=== PATIENT | male | born 1940 | race Caucasian/White ===

== ENCOUNTER 2020-09-17 10:46 | Inpatient (IN) ==
[2020-09-17] MEDS ORDERED: HYDROmorphone 0.5 MG/0.5 ML SYRINGE IV PRN (14:49)
[2020-09-17] MEDS ORDERED: cefTRIAXone 1 GM in DEXTROSE 5% IN WATER 50 ML IV SCH (15:00)
[2020-09-17 15:51] LABS: Basophils # (Auto) 0.03 K/mcL (0.00-0.20); Basophils % (Auto) 0.6 % (0.0-2.0); Eosinophils # (Auto) 0.01 K/mcL (0.00-0.70); Eosinophils % (Auto) 0.2 % (0.0-7.0); Hematocrit 47.9 % (41.0-55.0); Hemoglobin 15.8 g/dL (13.5-16.5); Lymphocytes # (Auto) 0.73 K/mcL (1.50-4.80); Lymphocytes % (Auto) 13.4 % (15.0-49.0); Mean Cell Volume 85.8 fL (80.0-100.0); Mean Platelet Volume 11.8 fL (7.4-10.4); Monocytes # (Auto) 0.49 K/mcL (0.10-0.90); Neutrophils % (Auto) 76.8 % (38.0-78.0); Platelet Count 162 K/mcL (140-440); RBC 5.58 M/mcL (4.50-5.90); Red Cell Distribution Width 13.3 % (11.5-14.5); WBC 5.5 K/mcL (4.5-11.0)
[2020-09-17 15:57] LABS: INR 1.1 (0.9-1.1); Prothrombin Time 14.6 sec (11.9-14.5)
[2020-09-17 16:16] LABS: ALT/SGPT 17 U/L (<40); AST/SGOT 38 U/L (<40); Albumin 3.5 gm/dL (3.2-5.2); Albumin/Globulin Ratio 1.5 (1.0-2.3); Alkaline Phosphatase 73 U/L (39-117); Bilirubin,Direct 0.3 mg/dL (<0.3); Bilirubin,Total 0.9 mg/dL (0.1-1.0); Blood Urea Nitrogen 26 mg/dL (8-23); Calcium 8.7 mg/dL (8.6-10.4); Carbon Dioxide 21 mmol/L (22-30); Chloride 106 mmol/L (96-108); Globulin 2.4 gm/dL (2.2-3.7); Glomerular Filtration Rate 69; Glucose 65 mg/dL (70-105); Lactate Dehydrogenase 167 U/L (135-225); Phosphorous 2.7 mg/dL (2.5-4.5); Triglycerides 49 mg/dL (<150); Uric Acid 7.6 mg/dL (2.5-8.0)
--- NOTE | 2020-09-17 16:16 | XRay Report ---
INDICATION: Preop evaluation TECHNIQUE: AP portable upright chest x-ray COMPARISON: Previous chest x-rays dated 01/27/2019, 01/06/2019, 07/02/2017 FINDINGS:Previous median sternotomy. 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 No focal pulmonary parenchymal infiltrate or mass Heart, vascular:No significant cardiomegaly. Pulmonary vascularity is normal. No pulmonary edema or pulmonary congestion Mediastinum, tanya:No mediastinal widening. No hilar mass Pleura:No pleural fluid. No pleural-based mass or calcification Skeletal:Nonacute healed left 7th and 8th rib fractures. No acute abnormality IMPRESSION: 1. No acute or focal abnormality 2. No interval change since 01/27/2019 Interpreted and Authenticated by: Tuan Amin 09/17/20
[2020-09-17] MEDS: cefTRIAXone 1 GM VIAL IV SCH (16:34)
[2020-09-17] MEDS: 0.9 % SODIUM CHLORIDE 1,000 ML IV SCH (16:35)
--- NOTE | 2020-09-17 17:20 | EKG ---
[facility] Test Date: 2020-09-17 Pat Name: Alessandro Watters Department: [facility] Room: 111 Gender: Male Nursing Assoc: : 1940 Requested By: Ioana Gudino Order Number: [id number] Reading MD: Wilson Jaimes M.D. Measurements Intervals Angela Rate: 93 P: 49 TX: 216 QRS: -4 QRSD: 134 T: 252 QT: 360 QTc: 448 Interpretive Statements SINUS RHYTHM VENTRICULAR PREMATURE COMPLEX FIRST DEGREE AV BLOCK RIGHT BUNDLE BRANCH BLOCK Since previous ECG of 01-27-2019, PVC, ABNORMAL ECG Electronically Signed On 09-17-2020 17:20:34 PDT by Wilson Jaimes M.D. /[email or web address]/[id number]
[2020-09-17] MEDS: METOCLOPRAMIDE 10 MG/2 ML VIAL IV SCH (18:11)
[2020-09-17] MEDS: ONDANSETRON 4 MG/2 ML VIAL IV PRN (20:25)
[2020-09-17] MEDS: TAMSULOSIN 0.4 MG CAPSULE PO SCH (20:25)
[2020-09-17] MEDS: 0.9 % SODIUM CHLORIDE 10 ML SYRINGE IV SCH (20:25)
[2020-09-18] MEDS: 0.9 % SODIUM CHLORIDE 1,000 ML IV SCH ×3 (00:44→17:18)
[2020-09-18] MEDS: METOCLOPRAMIDE 10 MG/2 ML VIAL IV SCH ×5 (00:50→23:53)
[2020-09-18] MEDS: 0.9 % SODIUM CHLORIDE 10 ML SYRINGE IV SCH ×3 (05:36→20:00)
[2020-09-18] MEDS: cefTRIAXone 1 GM VIAL IV SCH (09:07)
--- NOTE | 2020-09-18 14:39 | General Surgery Progress Note ---
SUBJECTIVE Subjective Patient information: Note initiated : 09/18/20 at 2:34 pm Service Date, if different from initiated Date: [] Patient: Alessandro Watters 80 y/o M admitted on 09/17/20 for G-Tube and J-Tube Placement. Chief Complaint: [] Principal diagnosis: Gastroparesis; recurrent nausea vomiting Interval history: Patient is clinically stable. He does complain of hunger. His surgery could not be done today because of equipment problems. It is scheduled for first case tomorrow. Is very cold Constitutional Vitals: Vital Signs Temp Pulse Resp BP Pulse Ox 98.1 F 57 L 20 113/58 92 09/18/20 12:00 09/18/20 12:00 09/18/20 12:00 09/18/20 12:00 09/18/20 12:00 Period Temp Pulse Resp BP Sys/Serra Pulse Ox Last 24 Hr 97.6 F-98.8 F 57-86 16-20 104-135/56-79 92-96 Intake and Output 09/18/20 09/18/20 09/18/20 05:59 13:59 21:59 Intake Total 1000 1400 Output Total 200 100 Balance 800 1300 Intake & Output: Intake & Output 09/18/20 09/18/20 09/18/20 05:59 13:59 21:59 Intake Total 1000 1400 Output Total 200 100 Balance 800 1300 Intake: IV 1000 1000 Sodium Chloride 0.9% 1,000 ml @ 1000 1000 125 mls/hr IV .Q8H [facility] Rx#: [id number] Oral 400 Output: Void Amount 200 100 Other: Urine Appearance Clear Urine Color Dark Yellow Light Allie Urine Odor Strong Head Head exam: Present atraumatic and normal inspection Eye Eye exam: Present EOMI Pupils: Present normal accommodation and PERRL ENT ENT exam: Present mucous membranes moist, normal exam and normal oropharynx Neck Neck exam: Present full ROM; Absent lymphadenopathy and thyromegaly Respiratory Respiratory exam: Present normal respiratory exam and CTAB; Absent rales, rhonchi and wheezes Cardiovascular Cardiovascular exam: Present normal rate and rhythm, RRR, +S1 and +S2; Absent JVD GI/Abdominal GI/Abdominal exam: Present soft Additional comments: Tenderness of the upper epigastric region with drainage from old PEG tube site Extremities Exam Extremities exam: Present full ROM and normal inspection; Absent pedal edema and tenderness Neurological Exam Neurological exam: Present alert, normal gait, oriented X3 and reflexes normal Psychiatric Psychiatric exam: Present normal affect and normal mood Skin Skin exam: Present erythema Additional comments: Cellulitis of epigastric region A/P Assessment and plan (1) Complication of feeding tube: Status: Acute (2) 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 He is scheduled for open jejunostomy and percutaneous gastrostomy placement in the a.m. Time Spent With Patient Time: Total time spent is greater than 50% in coordination of care (as documented) at patient's floor/unit and/or counseling patient:
[2020-09-18] MEDS: ONDANSETRON 4 MG/2 ML VIAL IV PRN (19:59)
[2020-09-18] MEDS: TAMSULOSIN 0.4 MG CAPSULE PO SCH (19:59)
[2020-09-19] MEDS: 0.9 % SODIUM CHLORIDE 1,000 ML IV SCH ×4 (02:13→18:37)
[2020-09-19] MEDS: 0.9 % SODIUM CHLORIDE 10 ML SYRINGE IV SCH ×3 (05:15→20:50)
[2020-09-19] MEDS: METOCLOPRAMIDE 10 MG/2 ML VIAL IV SCH ×4 (05:19→23:34)
[2020-09-19] MEDS ORDERED: IPRATROPIUM/ALBUTEROL 3 ML AMPUL.NEB NEB PRN ×3 (06:40→10:32)
[2020-09-19] MEDS ORDERED: ROPIVACAINE HCL/PF 20 ML VIAL IJ ONE (07:37)
[2020-09-19] MEDS ORDERED: diphenhydrAMINE 50 MG/ML VIAL ONE (07:37)
[2020-09-19] MEDS ORDERED: fentaNYL 100 MCG/2 ML VIAL IV ONE (07:37)
[2020-09-19] MEDS ORDERED: PHENYLephrine 1 MG/10 ML SYRINGE (ANEST) ONE (07:37)
[2020-09-19] MEDS ORDERED: PROPOFOL 200 MG/20 ML VIAL IV ONE (07:37)
[2020-09-19] MEDS ORDERED: DEXAMETHASONE 10 MG/ML VIAL ONE (07:37)
[2020-09-19] MEDS ORDERED: SUGAMMADEX SODIUM 200 MG/2 ML VIAL IV ONE (07:37)
[2020-09-19] MEDS ORDERED: SUCCINYLCHOLINE 20 MG/ML ML IV ONE (07:37)
[2020-09-19] MEDS ORDERED: GLYCOPYRROLATE 0.2 MG/ML VIAL IV ONE (07:37)
[2020-09-19] MEDS ORDERED: ePHEDrine 50 MG/5 ML SYRINGE (ANEST) IV ONE (07:37)
[2020-09-19] MEDS ORDERED: ESMOLOL 100 MG/10 ML VIAL IV ONE (07:37)
[2020-09-19] MEDS ORDERED: LIDOCAINE HCL/PF 100 MG/5 ML SYRINGE IV ONE (07:37)
[2020-09-19] MEDS ORDERED: KETAMINE 50 MG/ML Syringe (ANEST) ONE (07:37)
[2020-09-19] MEDS ORDERED: ONDANSETRON 4 MG/2 ML VIAL ONE (07:37)
[2020-09-19] MEDS ORDERED: MAGNESIUM SULFATE 2 GM/50 ML BAG IV ONE (07:37)
[2020-09-19] MEDS ORDERED: ROCURONIUM 10 MG/ML ML IV ONE (07:37)
[2020-09-19] MEDS ORDERED: HYDROmorphone 1 MG/ML SYRINGE ONE (07:37)
[2020-09-19] MEDS ORDERED: diphenhydrAMINE 50 MG/ML VIAL IV PRN ×2 (09:09→10:32)
[2020-09-19] MEDS ORDERED: ACETAMINOPHEN 900 MG/90 ML BAG IV ONE (09:09)
[2020-09-19] MEDS ORDERED: LACTATED RINGERS 250 ML IV PRN ×2 (09:09→10:32)
[2020-09-19] MEDS ORDERED: PROMETHAZINE 25 MG/ML VIAL IV PRN ×2 (09:09→10:32)
[2020-09-19] MEDS ORDERED: NALOXONE HCL 0.4 MG/ML VIAL IV PRN ×2 (09:09→10:32)
[2020-09-19] MEDS ORDERED: fentaNYL 100 MCG/2 ML VIAL IV PRN ×2 (09:09→10:32)
[2020-09-19] MEDS ORDERED: BENZOCAINE/MENTHOL 1 LOZENGE PO PRN ×2 (09:09→10:32)
[2020-09-19] MEDS ORDERED: MEPERIDINE 25 MG/ML VIAL IV PRN ×2 (09:09→10:32)
[2020-09-19] MEDS ORDERED: ONDANSETRON 4 MG/2 ML VIAL IV PRN ×3 (09:09→10:32)
[2020-09-19] MEDS ORDERED: LACTATED RINGERS 1,000 ML IV SCH ×2 (09:15→10:32)
--- NOTE | 2020-09-19 09:39 | Brief Operative Note ---
Brief Operative Note Date of procedure: 09/19/20 Pre-op diagnosis: gastroparesis;G-J tube malfunction Post-op diagnosis: other (gastroparesis;G-J TUBE MALFUNCTION) Procedure: OPEN TUBE GASTROSTOMY AND TUBE JEJUNOSTOMY Grafts/Implants: Yes (GASTROSTOMY TUBE AND JEJUNOSTOMY TUBES) Anesthesia: GETA Findings: OPEN GASTROSTOMY FISTULA Complications: none Surgeon: Ioana Gudino Estimated blood loss (cc): 20 Specimens Removed/Pathology: none sent Condition: stable Disposition: PACU
[2020-09-19] MEDS: cefTRIAXone 1 GM VIAL IV SCH ×2 (10:52→10:58)
[2020-09-19] MEDS: PANTOPRAZOLE 40 MG VIAL IV SCH (17:34)
[2020-09-19] MEDS: TAMSULOSIN 0.4 MG CAPSULE PO SCH ×2 (18:37→20:50)
[2020-09-20] MEDS: 0.9 % SODIUM CHLORIDE 1,000 ML IV SCH ×3 (02:38→19:10)
[2020-09-20] MEDS: 0.9 % SODIUM CHLORIDE 10 ML SYRINGE IV SCH ×3 (04:50→20:19)
[2020-09-20] MEDS: METOCLOPRAMIDE 10 MG/2 ML VIAL IV SCH ×4 (04:56→23:11)
[2020-09-20] MEDS: HYDROmorphone 0.5 MG/0.5 ML SYRINGE IV PRN ×4 (08:09→20:21)
[2020-09-20] MEDS: PANTOPRAZOLE 40 MG VIAL IV SCH ×2 (08:14→17:28)
[2020-09-20] MEDS: cefTRIAXone 1 GM VIAL IV SCH (10:45)
[2020-09-20] MEDS: TESTOSTERONE TOPICAL SCH (10:46)
[2020-09-20] MEDS ORDERED: MELATONIN 3 MG TABLET PO PRN (12:19)
--- NOTE | 2020-09-20 12:35 | General Surgery Progress Note ---
SUBJECTIVE Subjective Patient information: Note initiated : 09/20/20 at 12:29 pm Service Date, if different from initiated Date: [] Patient: Alessandro Watters 80 y/o M admitted on 09/17/20 for G-Tube and J-Tube Placement. Chief Complaint: [] Principal diagnosis: Gastroparesis; recurrent nausea vomiting Interval history: Patient is doing well. He has minimal discomfort. He denies abdominal distention and he has no nausea or vomiting. He has had flatus but no bowel movement. Patient and his were instructed on how to use the jejunostomy catheter for continuous infusion. If he tolerates it well I will switch him to bolus feedings prior to discharge. Constitutional Vitals: Vital Signs Temp Pulse Resp BP Pulse Ox 98 F 54 L 18 122/64 93 09/20/20 11:23 09/20/20 11:23 09/20/20 11:23 09/20/20 11:23 09/20/20 11:23 Period Temp Pulse Resp BP Sys/Serra Pulse Ox Last 24 Hr 97.5 F-98.7 F 47-73 14-18 103-132/54-68 91-95 Intake and Output 09/19/20 09/20/20 09/20/20 21:59 05:59 13:59 Intake Total 1396 1000 1000 Output Total 800 300 Balance 1396 200 700 Weight 138 lb 4 oz Intake & Output: Intake & Output 09/19/20 09/20/20 09/20/20 21:59 05:59 13:59 Intake Total 1396 1000 1000 Output Total 800 300 Balance 1396 200 700 Weight 138 lb 4 oz Intake: IV 996 1000 1000 Sodium Chloride 0.9% 1,000 ml @ 996 1000 1000 125 mls/hr IV .Q8H [facility] Rx#: [id number] Oral 400 0 Output: Urine Catheter Amount 800 300 Other: Urine Appearance Clear Clear Uretheral (Ibarra) Clear Clear Urine Color Dark Yellow Dark Yellow Uretheral (Ibarra) Dark Allie So-Hi Blood Tinged Urine Odor Uretheral (Ibarra) Normal Eye Eye exam: Present EOMI Pupils: Present normal accommodation and PERRL ENT ENT exam: Present mucous membranes moist, normal exam and normal oropharynx Neck Neck exam: Present full ROM; Absent lymphadenopathy and thyromegaly Respiratory Respiratory exam: Present normal respiratory exam and CTAB; Absent rales, rhonchi and wheezes Cardiovascular Cardiovascular exam: Present normal rate and rhythm, RRR, +S1 and +S2; Absent JVD GI/Abdominal GI/Abdominal exam: Present soft Additional comments: Tenderness of the upper epigastric region with drainage from old PEG tube site Abdominal midline incision is unremarkable Jejunostomy tube site is unremarkable Extremities Exam Extremities exam: Present full ROM and normal inspection; Absent pedal edema and tenderness Neurological Exam Neurological exam: Present alert, normal gait, oriented X3 and reflexes normal Psychiatric Psychiatric exam: Present normal affect and normal mood Skin Skin exam: Present erythema Additional comments: Cellulitis of epigastric region A/P Assessment and plan (1) Complication of feeding tube: Status: Acute (2) 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 Plan is for probable discharge home on Thursday with home health monitoring Will start oral Flomax and discontinue Ibarra catheter in the morning Time Spent With Patient Time: Total time spent is greater than 50% in coordination of care (as documented) at patient's floor/unit and/or counseling patient:
[2020-09-20 16:54] LABS: ALT/SGPT 26 U/L (<40); AST/SGOT 38 U/L (<40); Albumin 3.2 gm/dL (3.2-5.2); Albumin/Globulin Ratio 1.5 (1.0-2.3); Alkaline Phosphatase 68 U/L (39-117); Bilirubin,Direct < 0.2 mg/dL (0-0.3); Bilirubin,Total 0.4 mg/dL (0.1-1.0); Blood Urea Nitrogen 19 mg/dL (8-23); Calcium 7.8 mg/dL (8.6-10.4); Carbon Dioxide 18 mmol/L (22-30); Chloride 106 mmol/L (96-108); Globulin 2.1 gm/dL (2.2-3.7); Glomerular Filtration Rate 79; Glucose 72 mg/dL (70-105); Lactate Dehydrogenase 261 U/L (135-225); Phosphorous 1.9 mg/dL (2.5-4.5); Prealbumin 9.9 mg/dL (20.0-40.0); Triglycerides 80 mg/dL (<150)
[2020-09-20] MEDS: TAMSULOSIN 0.4 MG CAPSULE PO SCH (20:18)
[2020-09-20] MEDS: CHLORHEXIDINE GLUCONATE 1 ML ORAL.SOL SWABMOUTH SCH (20:18)
[2020-09-21] MEDS: 0.9 % SODIUM CHLORIDE 1,000 ML IV SCH ×3 (03:12→20:42)
[2020-09-21] MEDS: 0.9 % SODIUM CHLORIDE 10 ML SYRINGE IV SCH ×3 (05:19→20:45)
[2020-09-21] MEDS: METOCLOPRAMIDE 10 MG/2 ML VIAL IV SCH ×4 (05:31→23:37)
[2020-09-21] MEDS: HYDROmorphone 0.5 MG/0.5 ML SYRINGE IV PRN (05:31)
[2020-09-21 06:48] LABS: Basophils # (Auto) 0.02 K/mcL (0.00-0.20); Basophils % (Auto) 0.3 % (0.0-2.0); Eosinophils # (Auto) 0.05 K/mcL (0.00-0.70); Eosinophils % (Auto) 0.7 % (0.0-7.0); Hematocrit 45.1 % (41.0-55.0); Hemoglobin 15.5 g/dL (13.5-16.5); Lymphocytes # (Auto) 0.76 K/mcL (1.50-4.80); Lymphocytes % (Auto) 10.6 % (15.0-49.0); Mean Cell Volume 83.2 fL (80.0-100.0); Mean Corpuscular HGB Conc 34.4 g/dL (31.0-36.0); Mean Platelet Volume 11.5 fL (7.4-10.4); Monocytes # (Auto) 0.53 K/mcL (0.10-0.90); Monocytes % (Auto) 7.4 % (1.0-12.0); Platelet Count 170 K/mcL (140-440); RBC 5.42 M/mcL (4.50-5.90); Red Cell Distribution Width 13.2 % (11.5-14.5); WBC 7.2 K/mcL (4.5-11.0)
[2020-09-21] MEDS: PANTOPRAZOLE 40 MG VIAL IV SCH ×2 (07:00→16:15)
[2020-09-21] MEDS: THYROID, PORK 60 MG TABLET PO SCH (07:00)
[2020-09-21 07:12] LABS: ALT/SGPT 24 U/L (<40); AST/SGOT 27 U/L (<40); Albumin 2.5 gm/dL (3.2-5.2); Albumin/Globulin Ratio 1.1 (1.0-2.3); Alkaline Phosphatase 63 U/L (39-117); Bilirubin,Direct < 0.2 mg/dL (0-0.3); Bilirubin,Total 0.3 mg/dL (0.1-1.0); Blood Urea Nitrogen 12 mg/dL (8-23); Calcium 7.9 mg/dL (8.6-10.4); Carbon Dioxide 23 mmol/L (22-30); Chloride 106 mmol/L (96-108); Globulin 2.3 gm/dL (2.2-3.7); Glomerular Filtration Rate 87; Glucose 158 mg/dL (70-105); Lactate Dehydrogenase 213 U/L (135-225); Phosphorous 1.3 mg/dL (2.5-4.5); Triglycerides 115 mg/dL (<150); Uric Acid 8.4 mg/dL (2.5-8.0)
[2020-09-21] MEDS: CHLORHEXIDINE GLUCONATE 1 ML ORAL.SOL SWABMOUTH SCH ×2 (08:45→20:42)
[2020-09-21] MEDS: cefTRIAXone 1 GM VIAL IV SCH (08:46)
[2020-09-21] MEDS: TESTOSTERONE TOPICAL SCH (08:46)
[2020-09-21] MEDS: PRASTERONE 50 MG PO SCH (08:46)
[2020-09-21] MEDS: METOPROLOL SUCCINATE 25 MG TAB.XL.24H PO SCH (08:46)
[2020-09-21] MEDS: FINASTERIDE 5 MG TABLET PO SCH (08:46)
[2020-09-21] MEDS ORDERED: ONDANSETRON 4 MG/2 ML VIAL IV PRN (11:54)
--- NOTE | 2020-09-21 11:54 | General Surgery Progress Note ---
SUBJECTIVE Subjective Patient information: Note initiated : 09/21/20 at 11:48 am Service Date, if different from initiated Date: [] Patient: Alessandro Watters 80 y/o M admitted on 09/17/20 for G-Tube and J-Tube Placement. Chief Complaint: [] Principal diagnosis: Gastroparesis; recurrent nausea vomiting Interval history: Patient has had difficulty with voiding and has needed Ibarra catheterization. His Ibarra will be placed and left intact for another day or so. He also developed nausea with emesis primarily of some saliva. He is passing flatus and has had bowel movements. Serum phosphorus 1.3 potassium 3.7, white blood count 7.2, hemoglobin 15.5. Constitutional Vitals: Vital Signs Temp Pulse Resp BP Pulse Ox 99.1 F H 61 20 112/69 92 09/21/20 07:29 09/21/20 03:25 09/21/20 07:29 09/21/20 07:29 09/21/20 07:29 Period Temp Pulse Resp BP Sys/Serra Pulse Ox Last 24 Hr 97.7 F-99.1 F 61-62 16-20 112-141/68-78 92-92 Intake and Output 09/20/20 09/21/20 09/21/20 21:59 05:59 13:59 Intake Total 1000 1750 50 Output Total 400 1800 1100 Balance Weight 137 lb 9 oz Intake & Output: Intake & Output 09/20/20 09/21/20 09/21/20 21:59 05:59 13:59 Intake Total 1000 1750 50 Output Total 400 1800 1100 Balance Weight 137 lb 9 oz Intake: IV 1000 1000 Sodium Chloride 0.9% 1,000 ml @ 1000 1000 125 mls/hr IV .Q8H [facility] Rx#: [id number] Oral 200 Tube Feeding 430 50 GI Tube Flush 120 Output: Urine Catheter Amount 400 1800 Void Amount 1100 Other: Urine Appearance Cloudy Clear Clear Uretheral (Ibarra) Clear Urine Color Dark Yellow Bright Yellow Pale Uretheral (Ibarra) Bright Yellow Urine Odor Normal Normal Uretheral (Ibarra) Normal Normal Stool Size Large Stool Color Brown Green Stool Consistency Liquid Watery Loose ENT ENT exam: Present mucous membranes moist, normal exam and normal oropharynx Neck Neck exam: Present full ROM; Absent lymphadenopathy and thyromegaly Respiratory Respiratory exam: Present normal respiratory exam and CTAB; Absent rales, rhonchi and wheezes Cardiovascular Cardiovascular exam: Present normal rate and rhythm, RRR, +S1 and +S2; Absent JVD GI/Abdominal GI/Abdominal exam: Present normal bowel sounds and soft; Absent distended Extremities Exam Extremities exam: Present full ROM and normal inspection; Absent pedal edema and tenderness Neurological Exam Neurological exam: Present alert, normal gait, oriented X3 and reflexes normal Psychiatric Psychiatric exam: Present normal affect and normal mood Skin Skin exam: Present erythema Additional comments: Cellulitis of epigastric region A/P Assessment and plan (1) Complication of feeding tube: Status: Acute (2) 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
[2020-09-21] MEDS: POTASSIUM PHOSPHATE 40 MEQ in DEXTROSE 5% IN WATER 500 ML IV SCH ×2 (12:34→17:01)
[2020-09-21] MEDS: TAMSULOSIN 0.4 MG CAPSULE PO SCH (20:41)
[2020-09-22] MEDS: 0.9 % SODIUM CHLORIDE 1,000 ML IV SCH ×6 (03:06→23:08)
[2020-09-22] MEDS: METOCLOPRAMIDE 10 MG/2 ML VIAL IV SCH ×4 (05:59→23:22)
[2020-09-22] MEDS: 0.9 % SODIUM CHLORIDE 10 ML SYRINGE IV SCH ×3 (05:59→20:48)
[2020-09-22 07:06] LABS: Basophils # (Auto) 0.01 K/mcL (0.00-0.20); Basophils % (Auto) 0.1 % (0.0-2.0); Eosinophils # (Auto) 0.04 K/mcL (0.00-0.70); Eosinophils % (Auto) 0.5 % (0.0-7.0); Hematocrit 44.2 % (41.0-55.0); Hemoglobin 15.1 g/dL (13.5-16.5); Lymphocytes # (Auto) 0.72 K/mcL (1.50-4.80); Lymphocytes % (Auto) 8.6 % (15.0-49.0); Mean Cell Volume 82.8 fL (80.0-100.0); Mean Corpuscular HGB Conc 34.2 g/dL (31.0-36.0); Mean Platelet Volume 11.5 fL (7.4-10.4); Monocytes # (Auto) 0.65 K/mcL (0.10-0.90); Monocytes % (Auto) 7.7 % (1.0-12.0); Neutrophils % (Auto) 83.1 % (38.0-78.0); Platelet Count 162 K/mcL (140-440); RBC 5.34 M/mcL (4.50-5.90); Red Cell Distribution Width 13.2 % (11.5-14.5); WBC 8.4 K/mcL (4.5-11.0)
[2020-09-22 07:23] LABS: ALT/SGPT 23 U/L (<40); AST/SGOT 22 U/L (<40); Albumin 2.5 gm/dL (3.2-5.2); Albumin/Globulin Ratio 1.1 (1.0-2.3); Alkaline Phosphatase 61 U/L (39-117); Bilirubin,Direct < 0.2 mg/dL (0-0.3); Bilirubin,Total 0.3 mg/dL (0.1-1.0); Blood Urea Nitrogen 9 mg/dL (8-23); Calcium 7.9 mg/dL (8.6-10.4); Carbon Dioxide 30 mmol/L (22-30); Chloride 103 mmol/L (96-108); Globulin 2.3 gm/dL (2.2-3.7); Glomerular Filtration Rate 87; Glucose 141 mg/dL (70-105); Lactate Dehydrogenase 234 U/L (135-225); Phosphorous 2.7 mg/dL (2.5-4.5); Triglycerides 147 mg/dL (<150); Uric Acid 6.2 mg/dL (2.5-8.0)
[2020-09-22] MEDS: PANTOPRAZOLE 40 MG VIAL IV SCH ×2 (07:25→17:00)
[2020-09-22] MEDS: THYROID, PORK 60 MG TABLET PO SCH (07:25)
[2020-09-22] MEDS: CHLORHEXIDINE GLUCONATE 1 ML ORAL.SOL SWABMOUTH SCH ×2 (08:32→20:48)
[2020-09-22] MEDS: METOPROLOL SUCCINATE 25 MG TAB.XL.24H PO SCH (08:32)
[2020-09-22] MEDS: cefTRIAXone 1 GM VIAL IV SCH (08:32)
[2020-09-22] MEDS: FINASTERIDE 5 MG TABLET PO SCH (08:32)
[2020-09-22] MEDS: TESTOSTERONE TOPICAL SCH (08:33)
[2020-09-22] MEDS: PRASTERONE 50 MG PO SCH (08:33)
--- NOTE | 2020-09-22 11:18 | General Surgery Progress Note ---
SUBJECTIVE Subjective Patient information: Note initiated : 09/22/20 at 11:13 am Service Date, if different from initiated Date: [] Patient: Alessandro Watters 80 y/o M admitted on 09/17/20 for G-Tube and J-Tube Placement. Chief Complaint: [] Principal diagnosis: Gastroparesis; recurrent nausea vomiting Interval history: Patient feels better. He has not had nausea and vomiting since last evening. He has tolerated tube feedings without difficulty and is having semisoft bowel movements. He does not have any cramping abdominal pain. Labs are normal. Patient wishes to start bolus feedings during the day with continuous feeding at night. This was discussed with dietitian Constitutional Vitals: Vital Signs Temp Pulse Resp BP Pulse Ox 98.8 F 60 16 110/66 91 09/22/20 07:37 09/22/20 03:40 09/22/20 07:37 09/22/20 07:37 09/22/20 07:37 Period Temp Pulse Resp BP Sys/Serra Pulse Ox Last 24 Hr 98.4 F-99.2 F 59-67 16-20 110-151/66-93 90-92 Intake and Output 09/21/20 09/22/20 09/22/20 21:59 05:59 13:59 Intake Total 3542.0909 950 Output Total 1350 1150 Balance 2192.0909 -200 Weight 137 lb 6.4 oz Intake & Output: Intake & Output 09/21/20 09/22/20 09/22/20 21:59 05:59 13:59 Intake Total 3542.0909 950 Output Total 1350 1150 Balance 2192.0909 -200 Weight 137 lb 6.4 oz Intake: IV 2018.0909 Sodium Chloride 0.9% 1,000 ml @ 1000 125 mls/hr IV .Q8H [facility] Rx#: [id number] Potassium Phosphate 40 Meq In 1018.0909 Dextrose 5% in Water 500 ml @ 127.273 mls/hr IV Q4H [facility] Rx#: [id number] Oral 480 0 Tube Feeding 984 890 GI Tube Flush 60 60 Output: Gastric Drainage 50 Gastrostomy 50 Urine Catheter Amount 1250 1100 Void Amount 100 Other: Urine Appearance Clear Clear Clear Uretheral (Ibarra) Clear Clear Clear Urine Color Bright Yellow Bright Yellow Straw Uretheral (Ibarra) Bright Yellow Bright Yellow Straw Urine Odor Normal Normal Uretheral (Ibarra) Normal ENT ENT exam: Present mucous membranes moist, normal exam and normal oropharynx Neck Neck exam: Present full ROM; Absent lymphadenopathy and thyromegaly Respiratory Respiratory exam: Present normal respiratory exam and CTAB; Absent rales, rhonchi and wheezes Cardiovascular Cardiovascular exam: Present normal rate and rhythm, RRR, +S1 and +S2; Absent JVD GI/Abdominal GI/Abdominal exam: Present normal bowel sounds and soft; Absent distended Extremities Exam Extremities exam: Present full ROM and normal inspection; Absent pedal edema and tenderness Neurological Exam Neurological exam: Present alert, normal gait, oriented X3 and reflexes normal Psychiatric Psychiatric exam: Present normal affect and normal mood Skin Skin exam: Present erythema Additional comments: Cellulitis of epigastric region A/P Assessment and plan (1) Complication of feeding tube: Status: Acute (2) Malfunctioning jejunostomy tube: Status: Chronic (3) Gastroparesis: Status: Chronic Narrative A/P Narrative: Discontinue Ibarra catheter with trial at voiding Bolus feedings during the day and continuous feedings at 100 cc/h from 7 PM to 7 AM Hold PEG tube to suction every 6 hours x1 hour and as needed Time Spent With Patient Time: Total time spent is greater than 50% in coordination of care (as documented) at patient's floor/unit and/or counseling patient:
[2020-09-22] MEDS: TAMSULOSIN 0.4 MG CAPSULE PO SCH (20:48)
[2020-09-23] MEDS: 0.9 % SODIUM CHLORIDE 1,000 ML IV SCH ×2 (05:22→08:05)
[2020-09-23] MEDS: 0.9 % SODIUM CHLORIDE 10 ML SYRINGE IV SCH (05:22)
[2020-09-23] MEDS: METOCLOPRAMIDE 10 MG/2 ML VIAL IV SCH (05:22)
[2020-09-23 06:42] LABS: Basophils # (Auto) 0.04 K/mcL (0.00-0.20); Basophils % (Auto) 0.6 % (0.0-2.0); Eosinophils % (Auto) 1.5 % (0.0-7.0); Hematocrit 43.6 % (41.0-55.0); Hemoglobin 14.8 g/dL (13.5-16.5); Lymphocytes # (Auto) 0.75 K/mcL (1.50-4.80); Lymphocytes % (Auto) 10.9 % (15.0-49.0); Mean Cell Volume 82.9 fL (80.0-100.0); Mean Corpuscular HGB Conc 33.9 g/dL (31.0-36.0); Mean Platelet Volume 11.6 fL (7.4-10.4); Monocytes # (Auto) 0.42 K/mcL (0.10-0.90); Monocytes % (Auto) 6.1 % (1.0-12.0); Neutrophils % (Auto) 80.9 % (38.0-78.0); Platelet Count 167 K/mcL (140-440); RBC 5.26 M/mcL (4.50-5.90); Red Cell Distribution Width 13.6 % (11.5-14.5); WBC 6.9 K/mcL (4.5-11.0)
[2020-09-23] MEDS: PANTOPRAZOLE 40 MG VIAL IV SCH (07:06)
[2020-09-23] MEDS: THYROID, PORK 60 MG TABLET PO SCH (07:06)
[2020-09-23 07:09] LABS: ALT/SGPT 35 U/L (<40); AST/SGOT 31 U/L (<40); Albumin 2.7 gm/dL (3.2-5.2); Albumin/Globulin Ratio 1.3 (1.0-2.3); Alkaline Phosphatase 60 U/L (39-117); Bilirubin,Direct < 0.2 mg/dL (0-0.3); Bilirubin,Total 0.4 mg/dL (0.1-1.0); Blood Urea Nitrogen 16 mg/dL (8-23); Calcium 7.6 mg/dL (8.6-10.4); Carbon Dioxide 24 mmol/L (22-30); Chloride 108 mmol/L (96-108); Globulin 2.1 gm/dL (2.2-3.7); Glomerular Filtration Rate 87; Glucose 121 mg/dL (70-105); Lactate Dehydrogenase 234 U/L (135-225); Phosphorous 2.5 mg/dL (2.5-4.5); Triglycerides 136 mg/dL (<150); Uric Acid 5.4 mg/dL (2.5-8.0)
[2020-09-23] MEDS: METOPROLOL SUCCINATE 25 MG TAB.XL.24H PO SCH (08:32)
[2020-09-23] MEDS: FINASTERIDE 5 MG TABLET PO SCH (08:32)
[2020-09-23] MEDS: TESTOSTERONE TOPICAL SCH (08:33)
[2020-09-23] MEDS: cefTRIAXone 1 GM VIAL IV SCH (08:33)
[2020-09-23] MEDS: PRASTERONE 50 MG PO SCH (08:33)
[2020-09-23] MEDS: CHLORHEXIDINE GLUCONATE 1 ML ORAL.SOL SWABMOUTH SCH (08:33)
--- NOTE | 2020-09-23 11:11 | Discharge Summary ---
Discharge Provider Provider Patient information: Note initiated : 09/23/20 at 11:10 am Service Date, if different from initiated Date: [] Patient: Alessandro Watters 80 y/o M admitted on 09/17/20 for G-Tube and J-Tube Placement. Chief Complaint: [] Date of admission: 09/17/20 14:08 Discharge date: 09/23/20 Primary care physician: Marquis Argueta PA-C Admitting clinician: Ioana Gudino Attending physician on admission: Ioana Gudino Attending physician on discharge: Ioana Gudino Discharging clinician: Ioana Gudino COURSE Hospital Course Hospital course: 80-year-old male with history of gastroparesis and severe difficulty with feedings. He has a history of placement of multiple gastrojejunal tubes percutaneously but all of these tubes malfunction. He presented to the office after having his tube dislodged 2 days prior. He gave a history of having emesis daily with severe retching. He has a 5 pound weight loss. The interventional radiologist who had placed his last few tubes states that percutaneous placement was not an option and it was recommended that he have surgical placement. Patient was admitted for hydration and for permanent jejunostomy tube as well as percutaneous gastrostomy for gastric decompression. This was carried out on 19 September without difficulty. He has tolerated continuous feedings and he has Tolerated bolus feedings without difficulty. He has had decompression of his stomach via his PEG tube and this controls his nausea and vomiting. Patient is clinically stable and is discharged home. Discharge diagnosis: Gastroparesis, chronic Secondary discharge diagnosis: Malfunctioning jejunostomy tube Malfunction of gastric tube Recurrent nausea and vomiting Dehydration. Reason for admission: Recurrent nausea vomiting; gastroparesis Procedures: Esophagogastroduodenoscopy Open placement of gastric tube Open placement of jejunostomy catheter Pertinent studies/significant findings: None Complications: None Time Spent with Patient Time attestation: Total time spent providing and/or coordinating discharge services: Physical Examination Vital Signs Vital signs: Temp Pulse Resp BP Pulse Ox 98.2 F 57 L 18 104/63 92 09/23/20 07:32 09/23/20 07:32 09/23/20 07:32 09/23/20 07:32 09/23/20 07:32 General physical appearance General physical exam: no pain and chronically ill Eyes Eye exam: PERRL and normal ocular movement ENT ENT exam: normal nares and normal mucosa Head Head exam IM: Present atraumatic, normal inspection and normocephalic Neck Neck exam: no masses, no bruits, trachea midline, no lymphadenopathy and no venous distension Cardiovascular Cardiovascular exam IM: Present normal rate and rhythm, RRR, +S1 and +S2; Absent JVD Respiratory Respiratory exam: normal expansion, normal respiratory effort and clear to auscultation Abdomen Abdomen: Present soft, tender (Mild tenderness around tube sites), bowel sounds (Normal active bowel sounds) and surgical scars (Surgical incision is unremarkable) Genitourinary Genitourinary (Male): Present normal penis with no external lesions and other (Indwelling urinary catheter) Integumentary Integumentary: Present other (Cellulitis of abdominal wall is improving significantly) Neurologic Neurologic: Present normal coordination and normal sensation Musculoskeletal Musculoskeletal: Present normal gait and normal posture Psychiatric Psychiatric: Present oriented to time, oriented to person, oriented to place, speech is normal and memory intact Discharge Plan Patient/Caregiver Discharge Instructions Activity: increase activity as tolerated Instructions: Ibarra Catheter Placement and Care (DC), Urinary Leg Bag (GEN) Prescriptions: New metoclopramide HCl 5 mg/5 mL solution 10 mg PO Q6H MDD 40 mg Qty: 500 RF: 5 oxycodone 5 mg/5 mL Solution 5 mg PO Q4H PRN (Reason: Pain) Qty: 180 RF: 0 Continued finasteride 5 mg tablet 5 mg PO QDAY Qty: 30 RF: 11 omeprazole 20 mg capsule,delayed release(DR/EC) 20 mg PO DAILYP PRN (Reason: Heartburn) RF: 0 tamsulosin 0.4 mg capsule 0.8 mg PO HS RF: 0 (DME) Gastric Suction Machine Qty: 1 RF: 0 prasterone (dhea) [DHEA] 50 mg tablet 50 mg PO QDAY RF: 0 lactobacillus combination no.8 [Adult Probiotic] 3 billion cell capsule 1 cap PO DAILY RF: 0 metoprolol succinate 25 MG tablet extended release 24 hr 25 mg PO DAILY RF: 0 thyroid (pork) 120 MG tablet 120 mg PO DAILY RF: 0 cholecalciferol (vitamin D3) [Vitamin D3] 125 mcg (5,000 unit) Tablet 125 mcg PO HS RF: 0 testosterone 50 mg/5 gram (1 %) gel 2 packet TRANSDERMA QDAY RF: 0 melatonin 3 mg tablet 3 mg PO HS PRN (Reason: Insomnia) RF: 0 Follow Up Plan Follow up with: Keyur Solano MD [Physician] - Ioana Gudino MD [Physician] - Patient Disposition: Home, Self-Care Prognosis: Good Rehab Potential: Good I certify that the patient requires SNF services: No Overall status at discharge: patient is progressing back to baseline Discharge Orders: Discharge Order (Routine); Ordered 09/23/20 Ordered By: Ioana Gudino Pending Pending Pending: Resuscitation Status Full Code Diet Clear Liquid Diet Start ThuSep 18 1451 Ceftriaxone Sodium (Ceftriaxone 1 Gm Vial) 1 gm IV DAILY [facility] Admin: 09/23/20 08:33 Dose: 1 gm Documented by: Admin: 09/22/20 08:32 Dose: 1 gm Documented by: Admin: 09/21/20 08:46 Dose: 1 gm Documented by: Admin: 09/20/20 10:45 Dose: 1 gm Documented by: Admin: 09/19/20 10:52 Dose: Not Given Documented by: PURA Chlorhexidine Gluconate (Chlorhexidine Gluconate 1 Ml Oral.Itzel) 15 ml SWABMOUTH BID [facility] Admin: 09/23/20 08:33 Dose: 15 ml Documented by: Admin: 09/22/20 20:48 Dose: 15 ml Documented by: Admin: 09/22/20 08:32 Dose: 15 ml Documented by: Admin: 09/21/20 20:42 Dose: 15 ml Documented by: Admin: 09/21/20 08:45 Dose: 15 ml Documented by: Admin: 09/20/20 20:18 Dose: 15 ml Documented by: BRENT Finasteride (Finasteride 5 Mg Tablet) 5 mg PO QDAY [facility] Admin: 09/23/20 08:32 Dose: 5 mg Documented by: Admin: 09/22/20 08:32 Dose: 5 mg Documented by: Admin: 09/21/20 08:46 Dose: 5 mg Documented by: ROSALIND Hydromorphone HCl (Hydromorphone 0.5 Mg/0.5 Ml Syringe) 0.5 mg IV Q2HP PRN; Protocol PRN Reason: Per Pain Protocol Last Admin: 09/21/20 05:31 Dose: 0.5 mg Documented by: Admin: 09/20/20 20:21 Dose: 0.5 mg Documented by: Admin: 09/20/20 15:35 Dose: 0.5 mg Documented by: [facility] Admin: 09/20/20 12:34 Dose: 0.5 mg Documented by: [facility] Admin: 09/20/20 08:09 Dose: 0.5 mg Documented by: [facility] Sodium Chloride (Sodium Chloride 0.9%) 1,000 mls @ 125 mls/hr IV .Q8H [facility] Admin: 09/23/20 08:05 Dose: 125 mls/hr Documented by: Infusion: 09/23/20 07:08 Dose: 125 mls/hr Documented by: Admin: 09/23/20 05:22 Dose: Not Given Documented by: Admin: 09/22/20 23:08 Dose: 125 mls/hr Documented by: Infusion: 09/22/20 22:22 Dose: 125 mls/hr Documented by: Admin: 09/22/20 20:48 Dose: Not Given Documented by: Admin: 09/22/20 14:22 Dose: 125 mls/hr Documented by: Infusion: 09/22/20 14:22 Dose: 0 mls/hr Documented by: Admin: 09/22/20 09:44 Dose: Not Given Documented by: Admin: 09/22/20 04:59 Dose: 125 mls/hr Documented by: Admin: 09/22/20 03:06 Dose: Not Given Documented by: Admin: 09/21/20 20:42 Dose: Not Given Documented by: Infusion: 09/21/20 19:55 Dose: 125 mls/hr Documented by: Admin: 09/21/20 11:55 Dose: 125 mls/hr Documented by: Infusion: 09/21/20 11:12 Dose: 125 mls/hr Documented by: Admin: 09/21/20 03:12 Dose: 125 mls/hr Documented by: Infusion: 09/21/20 03:10 Dose: 125 mls/hr Documented by: Admin: 09/20/20 19:10 Dose: 125 mls/hr Documented by: Infusion: 09/20/20 18:42 Dose: 125 mls/hr Documented by: Admin: 09/20/20 10:42 Dose: 125 mls/hr Documented by: Infusion: 09/20/20 10:38 Dose: 125 mls/hr Documented by: Admin: 09/20/20 02:38 Dose: 125 mls/hr Documented by: Infusion: 09/20/20 02:37 Dose: 125 mls/hr Documented by: Admin: 09/19/20 18:37 Dose: 125 mls/hr Documented by: Infusion: 09/19/20 18:37 Dose: 125 mls/hr Documented by: Admin: 09/19/20 10:39 Dose: 125 mls/hr Documented by: PURA Melatonin (Melatonin 3 Mg Tablet) 3 mg PO HS PRN PRN Reason: Insomnia Last Admin: 09/20/20 20:18 Dose: 3 mg Documented by: BRENT Metoclopramide HCl (Metoclopramide 10 Mg/2 Ml Vial) 10 mg IV Q6 [facility] Admin: 09/23/20 05:22 Dose: 10 mg Documented by: Admin: 09/22/20 23:22 Dose: 10 mg Documented by: Admin: 09/22/20 17:03 Dose: 10 mg Documented by: Admin: 09/22/20 11:38 Dose: 10 mg Documented by: Admin: 09/22/20 05:59 Dose: 10 mg Documented by: Admin: 09/21/20 23:37 Dose: 10 mg Documented by: Admin: 09/21/20 17:01 Dose: 10 mg Documented by: Admin: 09/21/20 12:35 Dose: 10 mg Documented by: Admin: 09/21/20 05:31 Dose: 10 mg Documented by: Admin: 09/20/20 23:11 Dose: 10 mg Documented by: Admin: 09/20/20 17:29 Dose: 10 mg Documented by: Admin: 09/20/20 12:21 Dose: 10 mg Documented by: Admin: 09/20/20 04:56 Dose: 10 mg Documented by: Admin: 09/19/20 23:34 Dose: 10 mg Documented by: Admin: 09/19/20 17:34 Dose: 10 mg Documented by: [facility] Admin: 09/19/20 11:38 Dose: 10 mg Documented by: [facility] Metoprolol Succinate (Metoprolol Succinate 25 Mg Tab.Xl.24h) 25 mg PO DAILY [facility] Admin: 09/23/20 08:32 Dose: 25 mg Documented by: Admin: 09/22/20 08:32 Dose: 25 mg Documented by: Admin: 09/21/20 08:46 Dose: 25 mg Documented by: ROSALIND Pantoprazole Sodium (Pantoprazole 40 Mg Vial) 40 mg IV BIDAC [facility] Admin: 09/23/20 07:06 Dose: 40 mg Documented by: Admin: 09/22/20 17:00 Dose: 40 mg Documented by: Admin: 09/22/20 07:25 Dose: 40 mg Documented by: Admin: 09/21/20 16:15 Dose: 40 mg Documented by: Admin: 09/21/20 07:00 Dose: 40 mg Documented by: Admin: 09/20/20 17:28 Dose: 40 mg Documented by: Admin: 09/20/20 08:14 Dose: 40 mg Documented by: [facility] Admin: 09/19/20 17:34 Dose: 40 mg Documented by: Beni Testosterone 50 Mg/5 (Gram (1 %) Gel) 1 dose TOPICAL DAILY [facility] Admin: 09/23/20 08:33 Dose: Not Given Documented by: Admin: 09/22/20 08:33 Dose: Not Given Documented by: Admin: 09/21/20 08:46 Dose: Not Given Documented by: Admin: 09/20/20 10:46 Dose: Not Given Documented by: [facility] Prasterone (Dhea) [ (Dhea] 50 Mg Tablet) 1 dose PO QDAY [facility] Admin: 09/23/20 08:33 Dose: Not Given Documented by: Admin: 09/22/20 08:33 Dose: Not Given Documented by: Admin: 09/21/20 08:46 Dose: Not Given Documented by: ROSALIND Sodium Chloride (0.9 % Sodium Chloride 10 Ml Syringe) 10 ml IV Q8 RICKIE Last Admin: 09/23/20 05:22 Dose: Not Given Documented [facility]: [facility] Admin: 09/22/20 20:48 Dose: Not Given Documented by: [facility] Admin: 09/22/20 12:50 Dose: Not Given Documented by: [facility] Admin: 09/22/20 05:59 Dose: Not Given [facility]: 09/21/20 20:45 Dose: Not Given Documented by: [facility] Admin: 09/21/20 13:33 Dose: Not Given Documented by: [facility] Admin: 09/21/20 05:19 Dose: Not Given Documented by: [facility] Admin: 09/20/20 20:19 Dose: Not Given Documented by: [facility] Admin: 09/20/20 12:35 Dose: Not Given Documented by: [facility] Admin: 09/20/20 04:50 Dose: Not Given Documented by: [facility] Admin: 09/19/20 20:50 Dose: Not Given Documented by: [facility] Admin: 09/19/20 13:29 Dose: Not Given Documented by: [facility] Tamsulosin HCl (Tamsulosin 0.4 Mg Capsule) 0.8 mg PO HS [facility] Last Admin: 09/22/20 20:48 Dose: 0.8 mg [facility] Admin: 09/21/20 20:41 Dose: 0.8 mg Documented by: [facility] Admin: 09/20/20 20:18 Dose: 0.8 mg Documented by: [facility] Thyroid (Thyroid, Pork 60 Mg Tablet) 120 mg PO ACB [facility] Last Admin: 09/23/20 07:06 Dose: 120 mg Documented by: [facility] Admin: 09/22/20 07:25 Dose: 120 mg Documented by: [facility] Admin: 09/21/20 07:00 Dose: 120 mg Documented by: [facility] Shift Summary 09/23/20 04:30 Shift Summary by Joe Dailey Pt has rested well tonight. He has denied ABD pain most of the shift - no PRN pain meds required. No N/V. Med loose BM in BSC, and sm incont BM. Pt was up in chair @ start of the shift - up to BSC several times - TX's stable w/o device. (I) off-load in bed. NS infusing to his LT hand @ 125ml/hr. Midline ABD incision well approx w/ gauze & film dressing - C,D,I. PEG tube upper mid ABD. J-tube LLQ ABD w/ Vital 1.5cal infusing @ 100ml/hr. 60ml H2O boluses Q 4hr w/ VS - last bolus given @ 0325. Ibarra cath replaced this altagracia, as pt was unable to void - currently draining clear dark yellow urine - 775ml out this shift. VS WNL on R.A.. He is A&O x4, calm, pleasant, & cooperative. Initialized on 09/23/20 04:30 - END OF NOTE
--- NOTE | 2020-12-31 14:47 | Operative Note ---
DATE OF OPERATION: 09/19/2020 PREOPERATIVE DIAGNOSES: Gastroparesis and gastrojejunal tube malfunction. POSTOPERATIVE DIAGNOSES: Gastroparesis and gastrojejunal tube malfunction. PROCEDURE: Open tube gastrostomy and open tube jejunostomy. SURGEON: Ioana Gudino M.D. INDICATION FOR PROCEDURE: The procedure was being done because the gastrojejunal tube was no longer effective and it repeatedly dislodged and required replacement. Because of this, it was elected to do separate open gastrostomy tube and separate open jejunostomy tube. DESCRIPTION OF PROCEDURE: Under general anesthesia, the patient's abdomen was prepped and draped in a sterile field. Upper midline incision was made. Upon entering the peritoneal cavity, the bowel was inspected and was unremarkable. The stomach was partially adherent to the anterior abdominal wall. The jejunum was inspected at the ligament of Treitz and about 15 cm distal to the ligament of Treitz, a pursestring suture was placed. The jejunostomy tube was pulled through the anterior abdominal wall and was placed in a small enterotomy that was made in the jejunum. The pursestring suture was tied. The jejunum was then sutured circumferentially with about six sutures of 3-0 silk to the peritoneum surrounding the opening. Once this was done, the flat port of the jejunostomy tube was sutured to the skin. A new gastrostomy tube was then placed in the stomach and was secured with pursestring suture of 3-0 silk. It was also sutured to the peritoneum. Being satisfied that these were adequately placed, the fascia and peritoneum in the midline were closed with running #1 Prolene. The retaining bevel for the gastrostomy tube was placed and dressings were placed over both of the insertion sites. The patient tolerated the procedure well. He was awakened and taken to the postanesthetic care unit in satisfactory condition. LCS:jae Job ID: [id number] Doc ID: [id number] Ioana Gudino M.D.
== END 2020-09-23 12:50 | disposition home or self-care (01) | DRG 327 ==
LOC: MEDSUR 14:11
PROVIDERS: ADMIT Family Medicine Adult Medicine; ATTEND Family Medicine Adult Medicine

== ENCOUNTER 2022-12-29 09:31 | Inpatient (IN) ==
[2022-12-29] MEDS ORDERED: 0.9 % SODIUM CHLORIDE 1,000 ML IV ONE ×2 (10:04→11:13)
[2022-12-29 10:19] LABS: POC Calcium, Ionized 1.04 (1.16-1.32); POC Creatinine 2.9 (0.6-1.2); POC Potassium 5.1 (3.3-5.1)
[2022-12-29 11:32] LABS: Basophils # (Auto) 0.03 K/mcL (0.00-0.30); Basophils % (Auto) 0.4 % (0.0-2.0); Eosinophils # (Auto) 0.12 K/mcL (0.00-0.70); Eosinophils % (Auto) 1.6 % (0.0-7.0); Hematocrit 37.4 % (40.1-51.0); Lymphocytes # (Auto) 0.95 K/mcL (1.50-4.80); Lymphocytes % (Auto) 12.3 % (15.5-49.0); Mean Corpuscular HGB Conc 32.1 g/dL (31.0-36.0); Mean Platelet Volume 11.8 fL (8.8-12.5); Monocytes # (Auto) 0.78 K/mcL (0.10-0.90); Monocytes % (Auto) 10.1 % (1.0-12.0); Neutrophils % (Auto) 75.3 % (38.0-78.0); Platelet Count 161 K/mcL (140-440); Red Cell Distribution Width 14.1 % (11.5-14.5); WBC 7.7 K/mcL (4.5-11.0)
[2022-12-29 11:44] LABS: ALT/SGPT 16 U/L (<40); AST/SGOT 17 U/L (<40); Albumin 3.8 gm/dL (3.2-5.2); Alkaline Phosphatase 106 U/L (39-117); Bilirubin,Direct < 0.2 mg/dL (0-0.3); Bilirubin,Total 0.3 mg/dL (0.1-1.0); Globulin 2.8 gm/dL (2.2-3.7)
[2022-12-29 11:54] LABS: Blood Urea Nitrogen 105 mg/dL (8-23); Calcium 8.9 mg/dL (8.6-10.4); Carbon Dioxide 26 mmol/L (22-30); Chloride 96 mmol/L (96-108); Glomerular Filtration Rate 23; Glucose 92 mg/dL (70-105)
[2022-12-29] MEDS ORDERED: ALBUTEROL SULFATE 60 PUFF INHALER INH PRN (13:08)
[2022-12-29 13:34] LABS: Appearance,Urine HAZY (Clear); Bilirubin,Urine NEG (Negative); Color,Urine YELLOW; Culture Indicated,Urine Yes; Glucose,Urine (UA) NEG (Negative); Ketones,Urine NEG (Negative); Leukocyte Esterase,Urine 250 /uL (Negative); Mucus,Urine FEW /hpf; Nitrate,Urine NEG (Negative); Protein,Urine NEG (Negative); Specific Gravity,Urine 1.011 (1.000-1.035); Urine Blood NEG (Negative); Urine Budding Yeast MOD /hpf; Urine Hyaline Cast 3 /lph (0-2); Urine RBC 2 /hpf (0-3); Urine Squamous Epithelial Cell 1 /hpf (0-4); Urine WBC 54 /hpf (0-4); Urobilinogen,Urine NEG
[2022-12-29] MEDS ORDERED: ACETAMINOPHEN 325 MG TABLET PO PRN (14:57)
[2022-12-29] MEDS ORDERED: traZODone HCL 50 MG TABLET PO PRN (14:57)
[2022-12-29] MEDS ORDERED: IPRATROPIUM/ALBUTEROL 3 ML AMPUL.NEB NEB PRN (14:57)
[2022-12-29] MEDS ORDERED: ONDANSETRON 4 MG/2 ML VIAL IV PRN (14:57)
[2022-12-29] MEDS: 0.9 % SODIUM CHLORIDE 1,000 ML IV SCH (15:31)
[2022-12-29] MEDS: 0.9 % SODIUM CHLORIDE 10 ML SYRINGE IV SCH ×2 (15:32→22:15)
[2022-12-29 16:46] LABS: Prealbumin 27.2 mg/dL (20.0-40.0)
[2022-12-29 16:51] LABS: ALT/SGPT 16 U/L (<40); AST/SGOT 20 U/L (<40); Albumin 3.7 gm/dL (3.2-5.2); Albumin/Globulin Ratio 1.3 (1.0-2.3); Alkaline Phosphatase 102 U/L (39-117); Bilirubin,Direct < 0.2 mg/dL (0-0.3); Bilirubin,Total 0.5 mg/dL (0.1-1.0); Blood Urea Nitrogen 94 mg/dL (8-23); Calcium 8.4 mg/dL (8.6-10.4); Carbon Dioxide 24 mmol/L (22-30); Chloride 104 mmol/L (96-108); Globulin 2.9 gm/dL (2.2-3.7); Glomerular Filtration Rate 28; Glucose 105 mg/dL (70-105); Lactate Dehydrogenase 217 U/L (135-225); Triglycerides 56 mg/dL (<150); Uric Acid 7.7 mg/dL (2.5-8.0)
[2022-12-29] MEDS: HEPARIN 5,000 UNIT/ML VIAL SQ SCH (22:14)
[2022-12-29] MEDS: SENNOSIDES 1 TABLET PO SCH (22:15)
[2022-12-29] MEDS: DOCUSATE SODIUM 100 MG CAPSULE PO SCH (22:15)
[2022-12-29] MEDS: CHLORHEXIDINE GLUCONATE 15 ML UDC SWABMOUTH SCH (22:15)
[2022-12-30] MEDS: 0.9 % SODIUM CHLORIDE 1,000 ML IV SCH ×3 (00:28→17:03)
[2022-12-30] MEDS: KETOROLAC 30 MG/ML VIAL IV PRN (03:53)
[2022-12-30] MEDS: 0.9 % SODIUM CHLORIDE 10 ML SYRINGE IV SCH ×3 (04:59→21:55)
[2022-12-30 07:51] LABS: Basophils # (Auto) 0.03 K/mcL (0.00-0.30); Basophils % (Auto) 0.7 % (0.0-2.0); Eosinophils # (Auto) 0.11 K/mcL (0.00-0.70); Eosinophils % (Auto) 2.6 % (0.0-7.0); Hematocrit 39.1 % (40.1-51.0); Hemoglobin 11.5 g/dL (13.7-17.5); Lymphocytes # (Auto) 0.62 K/mcL (1.50-4.80); Lymphocytes % (Auto) 14.5 % (15.5-49.0); Mean Cell Volume 98.7 fL (80.0-100.0); Mean Corpuscular HGB Conc 29.4 g/dL (31.0-36.0); Mean Platelet Volume 11.8 fL (8.8-12.5); Monocytes # (Auto) 0.43 K/mcL (0.10-0.90); Platelet Count 143 K/mcL (140-440); RBC 3.96 M/mcL (4.63-6.08); Red Cell Distribution Width 14.3 % (11.5-14.5); WBC 4.3 K/mcL (4.5-11.0)
[2022-12-30 08:07] LABS: ALT/SGPT 14 U/L (<40); AST/SGOT 15 U/L (<40); Albumin/Globulin Ratio 1.2 (1.0-2.3); Alkaline Phosphatase 91 U/L (39-117); Bilirubin,Direct < 0.2 mg/dL (0-0.3); Bilirubin,Total 0.2 mg/dL (0.1-1.0); Blood Urea Nitrogen 66 mg/dL (8-23); Calcium 8.4 mg/dL (8.6-10.4); Carbon Dioxide 24 mmol/L (22-30); Chloride 110 mmol/L (96-108); Globulin 2.5 gm/dL (2.2-3.7); Glomerular Filtration Rate 50; Glucose 143 mg/dL (70-105); Lactate Dehydrogenase 148 U/L (135-225); Phosphorous 3.8 mg/dL (2.5-4.5); Triglycerides 112 mg/dL (<150); Uric Acid 7.8 mg/dL (2.5-8.0)
[2022-12-30] MEDS: CHLORHEXIDINE GLUCONATE 15 ML UDC SWABMOUTH SCH ×2 (09:00→21:53)
[2022-12-30] MEDS: HEPARIN 5,000 UNIT/ML VIAL SQ SCH ×2 (09:13→21:53)
[2022-12-30] MEDS: DOCUSATE SODIUM 100 MG CAPSULE PO SCH ×2 (09:14→21:55)
[2022-12-30] MEDS: ATORVASTATIN 40 MG TABLET PO SCH (09:14)
[2022-12-30] MEDS: TAMSULOSIN 0.4 MG CAPSULE PO SCH (09:14)
[2022-12-30] MEDS: buPROPion 75 MG TABLET PO SCH (09:14)
[2022-12-30] MEDS: FINASTERIDE 5 MG TABLET PO SCH (09:14)
[2022-12-30] MEDS: SENNOSIDES 1 TABLET PO SCH (21:55)
[2022-12-31] MEDS: 0.9 % SODIUM CHLORIDE 1,000 ML IV SCH ×3 (01:06→15:00)
[2022-12-31] MEDS: KETOROLAC 30 MG/ML VIAL IV PRN (01:09)
[2022-12-31] MEDS: 0.9 % SODIUM CHLORIDE 10 ML SYRINGE IV SCH ×2 (06:34→13:04)
[2022-12-31 06:49] LABS: Basophils # (Auto) 0.02 K/mcL (0.00-0.30); Basophils % (Auto) 0.6 % (0.0-2.0); Eosinophils # (Auto) 0.15 K/mcL (0.00-0.70); Eosinophils % (Auto) 4.3 % (0.0-7.0); Hematocrit 33.8 % (40.1-51.0); Hemoglobin 10.4 g/dL (13.7-17.5); Lymphocytes # (Auto) 0.58 K/mcL (1.50-4.80); Lymphocytes % (Auto) 16.8 % (15.5-49.0); Mean Cell Volume 95.2 fL (80.0-100.0); Mean Corpuscular HGB Conc 30.8 g/dL (31.0-36.0); Mean Platelet Volume 11.8 fL (8.8-12.5); Monocytes # (Auto) 0.31 K/mcL (0.10-0.90); Platelet Count 123 K/mcL (140-440); RBC 3.55 M/mcL (4.63-6.08); WBC 3.5 K/mcL (4.5-11.0)
[2022-12-31 07:20] LABS: ALT/SGPT 13 U/L (<40); AST/SGOT 14 U/L (<40); Albumin 2.9 gm/dL (3.2-5.2); Albumin/Globulin Ratio 1.3 (1.0-2.3); Alkaline Phosphatase 85 U/L (39-117); Bilirubin,Direct < 0.2 mg/dL (0-0.3); Bilirubin,Total 0.2 mg/dL (0.1-1.0); Blood Urea Nitrogen 38 mg/dL (8-23); Calcium 8.1 mg/dL (8.6-10.4); Carbon Dioxide 22 mmol/L (22-30); Chloride 117 mmol/L (96-108); Globulin 2.3 gm/dL (2.2-3.7); Glomerular Filtration Rate 78; Glucose 141 mg/dL (70-105); Lactate Dehydrogenase 142 U/L (135-225); Phosphorous 2.8 mg/dL (2.5-4.5); Triglycerides 83 mg/dL (<150); Uric Acid 6.3 mg/dL (2.5-8.0)
[2022-12-31] MEDS: CHLORHEXIDINE GLUCONATE 15 ML UDC SWABMOUTH SCH (08:47)
[2022-12-31] MEDS: FINASTERIDE 5 MG TABLET PO SCH (08:48)
[2022-12-31] MEDS: DOCUSATE SODIUM 100 MG CAPSULE PO SCH (08:48)
[2022-12-31] MEDS: buPROPion 75 MG TABLET PO SCH (08:48)
[2022-12-31] MEDS: ATORVASTATIN 40 MG TABLET PO SCH (08:49)
[2022-12-31] MEDS: TAMSULOSIN 0.4 MG CAPSULE PO SCH (08:59)
[2022-12-31] MEDS: HEPARIN 5,000 UNIT/ML VIAL SQ SCH (09:00)
[2022-12-31] MEDS ORDERED: MELATONIN 3 MG TABLET PO PRN (10:57)
[2022-12-31] MEDS ORDERED: oxyCODONE IR 5 MG TABLET PO PRN (10:57)
[2022-12-31] MEDS ORDERED: DICYCLOMINE 20 MG TABLET PO SCH (13:00)
[2022-12-31 16:03] VITALS: TEMP 97.8; O2SAT 96
[2022-12-31] MEDS ORDERED: OMEPRAZOLE 20 MG CAPSULE PO SCH (17:00)
[2022-12-31] MEDS ORDERED: VITAMIN D3 125 MCG TABLET PO SCH (21:00)
[2023-01-01] MEDS ORDERED: THYROID, PORK 60 MG TABLET PO SCH (07:30)
[2023-01-01] MEDS ORDERED: PRASTERONE 50 MG PO SCH (09:00)
[2023-01-01] MEDS ORDERED: CLOPIDOGREL 75 MG TABLET PO SCH (09:00)
[2023-01-01] MEDS ORDERED: TESTOSTERONE TOPICAL SCH (09:00)
== END 2022-12-31 15:47 | disposition home or self-care (01) | DRG 683 ==
LOC: ED 09:31 → MEDSUR 14:10
PROVIDERS: ADMIT Internal Medicine; ATTEND Internal Medicine

== ENCOUNTER 2023-07-17 05:10 | Inpatient (IN) ==
[2023-07-16 12:45] LABS: Basophils # (Auto) 0.02 K/mcL (0.00-0.30); Basophils % (Auto) 0.6 % (0.0-2.0); Eosinophils # (Auto) 0.07 K/mcL (0.00-0.70); Eosinophils % (Auto) 2.1 % (0.0-7.0); Hemoglobin 13.3 g/dL (13.7-17.5); Lymphocytes # (Auto) 0.85 K/mcL (1.50-4.80); Lymphocytes % (Auto) 26.1 % (15.5-49.0); Mean Cell Volume 88.1 fL (80.0-100.0); Mean Corpuscular HGB Conc 33.3 g/dL (31.0-36.0); Mean Platelet Volume 10.6 fL (8.8-12.5); Monocytes # (Auto) 0.43 K/mcL (0.10-0.90); Monocytes % (Auto) 13.2 % (1.0-12.0); Platelet Count 168 K/mcL (140-440); RBC 4.54 M/mcL (4.63-6.08); WBC 3.3 K/mcL (4.5-11.0)
[2023-07-16 13:13] LABS: ALT/SGPT 21 U/L (<40); AST/SGOT 27 U/L (<40); Albumin 3.9 gm/dL (3.2-5.2); Albumin/Globulin Ratio 1.6 (1.0-2.3); Alkaline Phosphatase 85 U/L (39-117); Bilirubin,Total 0.5 mg/dL (0.1-1.0); Blood Urea Nitrogen 47 mg/dL (8-23); Calcium 9.9 mg/dL (8.6-10.4); Carbon Dioxide 34 mmol/L (22-30); Chloride 97 mmol/L (96-108); Globulin 2.5 gm/dL (2.2-3.7); Glomerular Filtration Rate 61; Glucose 123 mg/dL (70-105)
[2023-07-16 15:24] LABS: INR 0.9 (0.9-1.1); Partial Thromboplastin Time 30.1 sec (20.0-37.0); Prothrombin Time 12.7 sec (11.9-14.5)
[2023-07-17] MEDS ORDERED: KETAMINE 50 MG/ML Syringe IV ONE (07:00)
[2023-07-17] MEDS ORDERED: DEXAMETHASONE 10 MG/ML VIAL ONE (07:06)
[2023-07-17] MEDS ORDERED: ONDANSETRON 4 MG/2 ML VIAL ONE (07:06)
[2023-07-17] MEDS ORDERED: LIDOCAINE 2% PF 5 ML VIAL ONE (07:06)
[2023-07-17] MEDS ORDERED: PROPOFOL 200 MG/20 ML VIAL IV ONE (07:07)
[2023-07-17] MEDS ORDERED: ETOMIDATE 20 MG/10 ML VIAL IV ONE (07:07)
[2023-07-17] MEDS ORDERED: ROCURONIUM 10 MG/ML ML IV ONE (07:07)
[2023-07-17] MEDS: ceFAZolin 2 GM in DEXTROSE 5% IN WATER 50 ML IV SCH (07:17)
[2023-07-17] MEDS ORDERED: fentaNYL 100 MCG/2 ML VIAL ONE (07:43)
[2023-07-17] MEDS ORDERED: ePHEDrine 50 MG/5 ML SYRINGE (ANEST) IV ONE (07:50)
[2023-07-17] MEDS: VANCOMYCIN 1 GM VIAL TOPICAL SCH (08:26)
[2023-07-17] MEDS: GENTAMICIN SULFATE 800 MG/20 ML VIAL IR ONE (08:26)
[2023-07-17] MEDS ORDERED: SUGAMMADEX SODIUM 200 MG/2 ML VIAL IV ONE (08:45)
[2023-07-17] MEDS ORDERED: MEPERIDINE 25 MG/ML VIAL IV PRN (08:51)
[2023-07-17] MEDS ORDERED: fentaNYL 100 MCG/2 ML VIAL IV PRN (08:51)
[2023-07-17] MEDS ORDERED: LACTATED RINGERS 250 ML IV PRN (08:51)
[2023-07-17] MEDS ORDERED: PROMETHAZINE 25 MG/ML VIAL IV PRN (08:51)
[2023-07-17] MEDS ORDERED: IPRATROPIUM/ALBUTEROL 3 ML AMPUL.NEB NEB PRN (08:51)
[2023-07-17] MEDS ORDERED: diphenhydrAMINE 50 MG/ML VIAL IV PRN (08:51)
[2023-07-17] MEDS ORDERED: NALOXONE HCL 0.4 MG/ML VIAL IV PRN (08:51)
[2023-07-17] MEDS: ONDANSETRON 4 MG/2 ML VIAL IV PRN ×2 (09:26→18:03)
[2023-07-17] MEDS: ACETAMINOPHEN 1,000 MG/100 ML BAG IV ONE (09:26)
[2023-07-17] MEDS: LACTATED RINGERS 1,000 ML IV SCH (10:08)
[2023-07-17] MEDS: 0.9 % SODIUM CHLORIDE 1,000 ML IV SCH (11:27)
[2023-07-17] MEDS: CEFEPIME 1 GM VIAL IV SCH (11:27)
[2023-07-17] MEDS: HYDROmorphone 0.5 MG/0.5 ML SYRINGE IV PRN (11:28)
[2023-07-17] MEDS: 0.9 % SODIUM CHLORIDE 10 ML SYRINGE IV SCH (13:44)
[2023-07-17] MEDS: ACETAMINOPHEN 1,000 MG/100 ML BAG IV SCH (14:37)
[2023-07-17] MEDS: PANTOPRAZOLE 40 MG VIAL IV SCH (18:02)
[2023-07-17] MEDS: TAMSULOSIN 0.4 MG CAPSULE PO SCH (21:46)
[2023-07-17] MEDS: METOCLOPRAMIDE 10 MG/2 ML VIAL IV SCH (21:47)
[2023-07-18 06:56] LABS: Basophils # (Auto) 0.02 K/mcL (0.00-0.30); Basophils % (Auto) 0.4 % (0.0-2.0); Eosinophils # (Auto) 0.03 K/mcL (0.00-0.70); Eosinophils % (Auto) 0.6 % (0.0-7.0); Hematocrit 37.5 % (40.1-51.0); Hemoglobin 12.1 g/dL (13.7-17.5); Lymphocytes # (Auto) 0.83 K/mcL (1.50-4.80); Lymphocytes % (Auto) 15.9 % (15.5-49.0); Mean Cell Volume 90.8 fL (80.0-100.0); Mean Corpuscular HGB Conc 32.3 g/dL (31.0-36.0); Mean Platelet Volume 11.5 fL (8.8-12.5); Monocytes # (Auto) 0.38 K/mcL (0.10-0.90); Monocytes % (Auto) 7.3 % (1.0-12.0); Neutrophils % (Auto) 75.6 % (38.0-78.0); Platelet Count 142 K/mcL (140-440); RBC 4.13 M/mcL (4.63-6.08); Red Cell Distribution Width 13.1 % (11.5-14.5); WBC 5.2 K/mcL (4.5-11.0)
[2023-07-18 07:13] LABS: ALT/SGPT 25 U/L (<40); AST/SGOT 33 U/L (<40); Albumin 3.3 gm/dL (3.2-5.2); Albumin/Globulin Ratio 1.6 (1.0-2.3); Alkaline Phosphatase 71 U/L (39-117); Bilirubin,Direct 0.3 mg/dL (<0.3); Bilirubin,Total 0.6 mg/dL (0.1-1.0); Blood Urea Nitrogen 37 mg/dL (8-23); Calcium 9.2 mg/dL (8.6-10.4); Carbon Dioxide 30 mmol/L (22-30); Chloride 103 mmol/L (96-108); Globulin 2.1 gm/dL (2.2-3.7); Glomerular Filtration Rate 77; Glucose 110 mg/dL (70-105); Lactate Dehydrogenase 159 U/L (135-225); Phosphorous 3.9 mg/dL (2.5-4.5); Triglycerides 73 mg/dL (<150); Uric Acid 6.4 mg/dL (2.5-8.0)
[2023-07-18] MEDS: 0.9 % SODIUM CHLORIDE 10 ML SYRINGE IV SCH (09:58)
[2023-07-18] MEDS: FINASTERIDE 5 MG TABLET PO SCH (09:58)
[2023-07-18] MEDS ORDERED: LIDOCAINE 1% 20 ML VIAL SQ ONE (11:51)
[2023-07-18] MEDS ORDERED: TPN PER PHARMACY IV SCH (13:58)
[2023-07-19 08:56] LABS: ALT/SGPT 16 U/L (<40); AST/SGOT 24 U/L (<40); Albumin/Globulin Ratio 1.5 (1.0-2.3); Alkaline Phosphatase 65 U/L (39-117); Bilirubin,Direct 0.2 mg/dL (<0.3); Bilirubin,Total 0.4 mg/dL (0.1-1.0); Blood Urea Nitrogen 31 mg/dL (8-23); Calcium 8.8 mg/dL (8.6-10.4); Carbon Dioxide 22 mmol/L (22-30); Chloride 106 mmol/L (96-108); Glomerular Filtration Rate 81; Glucose 52 mg/dL (70-105); Lactate Dehydrogenase 132 U/L (135-225); Phosphorous 3.4 mg/dL (2.5-4.5); Triglycerides 89 mg/dL (<150); Uric Acid 6.9 mg/dL (2.5-8.0)
[2023-07-19 09:14] LABS: Prealbumin 14.8 mg/dL (20.0-40.0)
[2023-07-19] MEDS: INSULIN LISPRO 1 UNIT/0.01 ML UNIT SQ SCH (12:12)
[2023-07-19] MEDS: DEXTROSE 50% 50 ML SYRINGE IV PRN (12:12)
[2023-07-19] MEDS: [UNRECOGNIZED DRUG - OTHER] IV SCH (12:17)
[2023-07-19] MEDS: MAGNESIUM SULFATE IV SCH (12:17)
[2023-07-19] MEDS: POTASSIUM CHLORIDE IV SCH (12:17)
[2023-07-19] MEDS: MVI IV SCH (12:17)
[2023-07-19] MEDS: SODIUM CHLORIDE IV SCH (12:17)
[2023-07-20 06:54] LABS: Basophils # (Auto) 0.03 K/mcL (0.00-0.30); Basophils % (Auto) 0.6 % (0.0-2.0); Eosinophils # (Auto) 0.22 K/mcL (0.00-0.70); Eosinophils % (Auto) 4.5 % (0.0-7.0); Hematocrit 38.4 % (40.1-51.0); Hemoglobin 12.5 g/dL (13.7-17.5); Lymphocytes # (Auto) 0.75 K/mcL (1.50-4.80); Lymphocytes % (Auto) 15.5 % (15.5-49.0); Mean Cell Volume 89.3 fL (80.0-100.0); Mean Corpuscular HGB Conc 32.6 g/dL (31.0-36.0); Mean Platelet Volume 11.3 fL (8.8-12.5); Monocytes # (Auto) 0.36 K/mcL (0.10-0.90); Monocytes % (Auto) 7.4 % (1.0-12.0); Neutrophils % (Auto) 71.8 % (38.0-78.0); Platelet Count 135 K/mcL (140-440); Red Cell Distribution Width 12.7 % (11.5-14.5); WBC 4.9 K/mcL (4.5-11.0)
[2023-07-20 07:07] LABS: ALT/SGPT 12 U/L (<40); AST/SGOT 18 U/L (<40); Albumin 3.1 gm/dL (3.2-5.2); Albumin/Globulin Ratio 1.6 (1.0-2.3); Alkaline Phosphatase 67 U/L (39-117); Bilirubin,Direct < 0.2 mg/dL (0-0.3); Bilirubin,Total 0.3 mg/dL (0.1-1.0); Blood Urea Nitrogen 26 mg/dL (8-23); Calcium 8.8 mg/dL (8.6-10.4); Carbon Dioxide 24 mmol/L (22-30); Chloride 108 mmol/L (96-108); Glomerular Filtration Rate 86; Glucose 155 mg/dL (70-105); Lactate Dehydrogenase 142 U/L (135-225); Phosphorous 2.2 mg/dL (2.5-4.5); Triglycerides 96 mg/dL (<150); Uric Acid 6.3 mg/dL (2.5-8.0)
[2023-07-20] MEDS: [UNRECOGNIZED DRUG - OTHER] IV SCH (11:12)
[2023-07-20] MEDS: POTASSIUM CHLORIDE IV SCH (11:12)
[2023-07-20] MEDS: MAGNESIUM SULFATE IV SCH (11:12)
[2023-07-20] MEDS: SODIUM CHLORIDE IV SCH (11:12)
[2023-07-20] MEDS: FAT EMULSION 20% 250 ML in PREMIX 1 BAG IV SCH (16:21)
[2023-07-21 07:18] LABS: ALT/SGPT 13 U/L (<40); AST/SGOT 20 U/L (<40); Albumin 2.8 gm/dL (3.2-5.2); Albumin/Globulin Ratio 1.6 (1.0-2.3); Alkaline Phosphatase 62 U/L (39-117); Bilirubin,Direct < 0.2 mg/dL (0-0.3); Bilirubin,Total 0.2 mg/dL (0.1-1.0); Blood Urea Nitrogen 25 mg/dL (8-23); Calcium 8.4 mg/dL (8.6-10.4); Carbon Dioxide 22 mmol/L (22-30); Chloride 110 mmol/L (96-108); Globulin 1.8 gm/dL (2.2-3.7); Glomerular Filtration Rate 91; Glucose 140 mg/dL (70-105); Lactate Dehydrogenase 144 U/L (135-225); Phosphorous 2.2 mg/dL (2.5-4.5); Triglycerides 68 mg/dL (<150); Uric Acid 4.6 mg/dL (2.5-8.0)
[2023-07-21] MEDS: POTASSIUM CHLORIDE IV SCH (11:38)
[2023-07-21] MEDS: SODIUM CHLORIDE IV SCH (11:38)
[2023-07-21] MEDS: MAGNESIUM SULFATE IV SCH (11:38)
[2023-07-21] MEDS: [UNRECOGNIZED DRUG - OTHER] IV SCH (11:38)
[2023-07-21] MEDS ORDERED: DIATRIZOATE MEGLU/DIATRIZO SOD 30 ML BOTTLE PO ONE (12:23)
[2023-07-21] MEDS ORDERED: DIATRIZOATE MEGLU/DIATRIZO SOD 120ML BOTTLE PO ONE (12:23)
[2023-07-22 06:40] LABS: ALT/SGPT 28 U/L (<40); AST/SGOT 34 U/L (<40); Albumin 2.7 gm/dL (3.2-5.2); Albumin/Globulin Ratio 1.4 (1.0-2.3); Alkaline Phosphatase 68 U/L (39-117); Bilirubin,Direct < 0.2 mg/dL (0-0.3); Bilirubin,Total 0.4 mg/dL (0.1-1.0); Blood Urea Nitrogen 27 mg/dL (8-23); Calcium 8.5 mg/dL (8.6-10.4); Carbon Dioxide 20 mmol/L (22-30); Chloride 111 mmol/L (96-108); Globulin 1.9 gm/dL (2.2-3.7); Glomerular Filtration Rate 98; Glucose 130 mg/dL (70-105); Lactate Dehydrogenase 135 U/L (135-225); Phosphorous 2.3 mg/dL (2.5-4.5); Triglycerides 67 mg/dL (<150); Uric Acid 3.4 mg/dL (2.5-8.0)
[2023-07-22 10:56] LABS: Prealbumin 14.8 mg/dL (20.0-40.0)
[2023-07-22] MEDS ORDERED: [UNRECOGNIZED DRUG - OTHER] IV SCH (11:00)
[2023-07-22] MEDS ORDERED: MAGNESIUM SULFATE IV SCH (11:00)
[2023-07-22] MEDS ORDERED: POTASSIUM CHLORIDE IV SCH (11:00)
[2023-07-22] MEDS ORDERED: SODIUM CHLORIDE IV SCH (11:00)
[2023-07-22] MEDS: POTASSIUM CHLORIDE IV SCH (11:03)
[2023-07-22] MEDS: [UNRECOGNIZED DRUG - OTHER] IV SCH (11:03)
[2023-07-22] MEDS: SODIUM CHLORIDE IV SCH (11:03)
[2023-07-22] MEDS: MAGNESIUM SULFATE IV SCH (11:03)
[2023-07-23 07:51] LABS: ALT/SGPT 33 U/L (<40); AST/SGOT 32 U/L (<40); Albumin 2.6 gm/dL (3.2-5.2); Alkaline Phosphatase 75 U/L (39-117); Bilirubin,Direct < 0.2 mg/dL (0-0.3); Bilirubin,Total < 0.2 mg/dL (0.1-1.0); Blood Urea Nitrogen 30 mg/dL (8-23); Calcium 8.6 mg/dL (8.6-10.4); Carbon Dioxide 13 mmol/L (22-30); Chloride 110 mmol/L (96-108); Globulin 2.6 gm/dL (2.2-3.7); Glomerular Filtration Rate 98; Glucose 116 mg/dL (70-105); Lactate Dehydrogenase 222 U/L (135-225); Phosphorous 2.3 mg/dL (2.5-4.5); Triglycerides 109 mg/dL (<150); Uric Acid 2.6 mg/dL (2.5-8.0)
[2023-07-23 09:59] LABS: Prealbumin 18.4 mg/dL (20.0-40.0)
[2023-07-23] MEDS: SODIUM CHLORIDE IV SCH (11:37)
[2023-07-23] MEDS: [UNRECOGNIZED DRUG - OTHER] IV SCH (11:37)
[2023-07-23] MEDS: MAGNESIUM SULFATE IV SCH (11:37)
[2023-07-23] MEDS: POTASSIUM ACETATE IV SCH (11:37)
[2023-07-24 10:07] LABS: ALT/SGPT 50 U/L (<40); AST/SGOT 46 U/L (<40); Albumin 2.8 gm/dL (3.2-5.2); Albumin/Globulin Ratio 1.8 (1.0-2.3); Alkaline Phosphatase 79 U/L (39-117); Bilirubin,Direct < 0.2 mg/dL (0-0.3); Bilirubin,Total < 0.2 mg/dL (0.1-1.0); Blood Urea Nitrogen 32 mg/dL (8-23); Carbon Dioxide 15 mmol/L (22-30); Chloride 110 mmol/L (96-108); Globulin 1.6 gm/dL (2.2-3.7); Glomerular Filtration Rate 91; Glucose 123 mg/dL (70-105); Lactate Dehydrogenase 146 U/L (135-225); Phosphorous 2.3 mg/dL (2.5-4.5); Triglycerides 159 mg/dL (<150); Uric Acid 2.4 mg/dL (2.5-8.0)
[2023-07-24] MEDS: SODIUM CHLORIDE IV SCH (11:53)
[2023-07-24] MEDS: MAGNESIUM SULFATE IV SCH (11:53)
[2023-07-24] MEDS: [UNRECOGNIZED DRUG - OTHER] IV SCH (11:53)
[2023-07-24] MEDS: POTASSIUM ACETATE IV SCH (11:53)
[2023-07-24] MEDS: 0.9 % SODIUM CHLORIDE 10 ML SYRINGE IV PRN (13:08)
[2023-07-25] MEDS: ALPRAZolam 0.5 MG TABLET PO PRN (00:47)
[2023-07-25] MEDS: ALPRAZolam 0.5 MG TABLET ONE (01:54)
[2023-07-25 06:48] LABS: ALT/SGPT 48 U/L (<40); AST/SGOT 40 U/L (<40); Albumin 2.8 gm/dL (3.2-5.2); Albumin/Globulin Ratio 1.5 (1.0-2.3); Alkaline Phosphatase 84 U/L (39-117); Bilirubin,Direct < 0.2 mg/dL (0-0.3); Bilirubin,Total < 0.2 mg/dL (0.1-1.0); Blood Urea Nitrogen 31 mg/dL (8-23); Calcium 8.4 mg/dL (8.6-10.4); Carbon Dioxide 15 mmol/L (22-30); Chloride 110 mmol/L (96-108); Globulin 1.9 gm/dL (2.2-3.7); Glomerular Filtration Rate 98; Glucose 121 mg/dL (70-105); Lactate Dehydrogenase 147 U/L (135-225); Phosphorous 3.2 mg/dL (2.5-4.5); Triglycerides 215 mg/dL (<150); Uric Acid 2.3 mg/dL (2.5-8.0)
[2023-07-25] MEDS: SODIUM CHLORIDE IV SCH (12:08)
[2023-07-25] MEDS: MAGNESIUM SULFATE IV SCH (12:08)
[2023-07-25] MEDS: POTASSIUM ACETATE IV SCH (12:08)
[2023-07-25] MEDS: [UNRECOGNIZED DRUG - OTHER] IV SCH (12:08)
[2023-07-26 08:10] LABS: ALT/SGPT 69 U/L (<40); AST/SGOT 55 U/L (<40); Albumin/Globulin Ratio 1.6 (1.0-2.3); Alkaline Phosphatase 98 U/L (39-117); Bilirubin,Direct < 0.2 mg/dL (0-0.3); Bilirubin,Total 0.2 mg/dL (0.1-1.0); Blood Urea Nitrogen 35 mg/dL (8-23); Calcium 8.8 mg/dL (8.6-10.4); Carbon Dioxide 18 mmol/L (22-30); Chloride 108 mmol/L (96-108); Globulin 1.9 gm/dL (2.2-3.7); Glomerular Filtration Rate 98; Glucose 128 mg/dL (70-105); Lactate Dehydrogenase 142 U/L (135-225); Phosphorous 3.8 mg/dL (2.5-4.5); Triglycerides 191 mg/dL (<150); Uric Acid 2.5 mg/dL (2.5-8.0)
[2023-07-27 07:07] LABS: Basophils # (Auto) 0.05 K/mcL (0.00-0.30); Basophils % (Auto) 0.9 % (0.0-2.0); Eosinophils # (Auto) 0.46 K/mcL (0.00-0.70); Eosinophils % (Auto) 8.1 % (0.0-7.0); Hematocrit 31.7 % (40.1-51.0); Hemoglobin 10.1 g/dL (13.7-17.5); Lymphocytes # (Auto) 0.81 K/mcL (1.50-4.80); Lymphocytes % (Auto) 14.3 % (15.5-49.0); Mean Cell Volume 92.4 fL (80.0-100.0); Mean Corpuscular HGB Conc 31.9 g/dL (31.0-36.0); Mean Platelet Volume 11.1 fL (8.8-12.5); Monocytes # (Auto) 0.54 K/mcL (0.10-0.90); Monocytes % (Auto) 9.5 % (1.0-12.0); Neutrophils % (Auto) 66.5 % (38.0-78.0); Platelet Count 163 K/mcL (140-440); RBC 3.43 M/mcL (4.63-6.08); Red Cell Distribution Width 14.3 % (11.5-14.5); WBC 5.7 K/mcL (4.5-11.0)
[2023-07-27 10:19] LABS: Basophils # (Auto) 0.04 K/mcL (0.00-0.30); Basophils % (Auto) 0.6 % (0.0-2.0); Hematocrit 34.2 % (40.1-51.0); Hemoglobin 11.2 g/dL (13.7-17.5); Lymphocytes # (Auto) 0.88 K/mcL (1.50-4.80); Lymphocytes % (Auto) 14.1 % (15.5-49.0); Mean Cell Volume 89.5 fL (80.0-100.0); Mean Corpuscular HGB Conc 32.7 g/dL (31.0-36.0); Mean Platelet Volume 10.4 fL (8.8-12.5); Monocytes # (Auto) 0.56 K/mcL (0.10-0.90); Neutrophils % (Auto) 67.5 % (38.0-78.0); Platelet Count 163 K/mcL (140-440); RBC 3.82 M/mcL (4.63-6.08); Red Cell Distribution Width 14.2 % (11.5-14.5); WBC 6.3 K/mcL (4.5-11.0)
[2023-07-27 10:47] LABS: ALT/SGPT 71 U/L (<40); AST/SGOT 45 U/L (<40); Albumin 3.2 gm/dL (3.2-5.2); Albumin/Globulin Ratio 1.5 (1.0-2.3); Alkaline Phosphatase 104 U/L (39-117); Bilirubin,Total 0.3 mg/dL (0.1-1.0); Blood Urea Nitrogen 38 mg/dL (8-23); Calcium 8.9 mg/dL (8.6-10.4); Carbon Dioxide 21 mmol/L (22-30); Chloride 105 mmol/L (96-108); Globulin 2.2 gm/dL (2.2-3.7); Glomerular Filtration Rate 98; Glucose 104 mg/dL (70-105)
[2023-07-27] MEDS: SODIUM CHLORIDE IV SCH (12:37)
[2023-07-27] MEDS: MAGNESIUM SULFATE IV SCH (12:37)
[2023-07-27] MEDS: POTASSIUM ACETATE IV SCH (12:37)
[2023-07-27] MEDS: [UNRECOGNIZED DRUG - OTHER] IV SCH (12:37)
[2023-07-27] MEDS ORDERED: ACETAMINOPHEN 1,000 MG/100 ML BAG IV PRN (16:54)
[2023-07-28 07:26] VITALS: TEMP 97.7
[2023-07-28 13:02] VITALS: O2SAT 98
== END 2023-07-28 13:40 | DRG 329 ==
LOC: MEDSUR 05:10 → EDSTATUS 11:45
PROVIDERS: ADMIT Family Medicine Adult Medicine; ATTEND Family Medicine Adult Medicine

== ENCOUNTER 2023-08-25 15:15 | Inpatient (IN) ==
[2023-08-25] MEDS: 0.9 % SODIUM CHLORIDE 1,000 ML IV SCH (18:58)
[2023-08-25] MEDS: ACETAMINOPHEN 1,000 MG/100 ML BAG IV SCH (18:58)
[2023-08-25] MEDS: PYRIDOSTIGMINE BROMIDE 10 MG/2 ML AMPUL IV SCH (18:58)
[2023-08-25] MEDS: METOCLOPRAMIDE 10 MG/2 ML VIAL IV SCH (18:58)
[2023-08-25] MEDS: CEFEPIME 2 GM VIAL IV SCH (21:17)
[2023-08-25] MEDS: LORazepam 2 MG/ML VIAL IV SCH (21:17)
[2023-08-26 06:30] LABS: Basophils # (Auto) 0.01 K/mcL (0.00-0.30); Basophils % (Auto) 0.3 % (0.0-2.0); Eosinophils # (Auto) 0.06 K/mcL (0.00-0.70); Hematocrit 29.8 % (40.1-51.0); Hemoglobin 9.8 g/dL (13.7-17.5); Lymphocytes # (Auto) 0.58 K/mcL (1.50-4.80); Lymphocytes % (Auto) 19.6 % (15.5-49.0); Mean Cell Volume 90.6 fL (80.0-100.0); Mean Corpuscular HGB Conc 32.9 g/dL (31.0-36.0); Mean Platelet Volume 12.2 fL (8.8-12.5); Monocytes # (Auto) 0.31 K/mcL (0.10-0.90); Monocytes % (Auto) 10.5 % (1.0-12.0); Neutrophils % (Auto) 67.3 % (38.0-78.0); Platelet Count 74 K/mcL (140-440); RBC 3.29 M/mcL (4.63-6.08); Red Cell Distribution Width 13.5 % (11.5-14.5)
[2023-08-26 06:50] LABS: ALT/SGPT 28 U/L (<40); AST/SGOT 29 U/L (<40); Albumin 2.8 gm/dL (3.2-5.2); Albumin/Globulin Ratio 1.5 (1.0-2.3); Alkaline Phosphatase 89 U/L (39-117); Bilirubin,Direct 0.2 mg/dL (<0.3); Bilirubin,Total 0.4 mg/dL (0.1-1.0); Blood Urea Nitrogen 25 mg/dL (8-23); Calcium 8.7 mg/dL (8.6-10.4); Carbon Dioxide 20 mmol/L (22-30); Chloride 110 mmol/L (96-108); Globulin 1.9 gm/dL (2.2-3.7); Glomerular Filtration Rate 86; Glucose 81 mg/dL (70-105); Lactate Dehydrogenase 164 U/L (135-225); Phosphorous 3.6 mg/dL (2.5-4.5); Potassium 3.6 mmol/L (3.3-5.1); Sodium 137 mmol/L (133-145); Triglycerides 109 mg/dL (<150); Uric Acid 2.7 mg/dL (2.5-8.0)
[2023-08-26] MEDS: PANTOPRAZOLE 40 MG VIAL IV SCH (07:24)
[2023-08-26] MEDS: LEVOTHYROXINE 100 MCG VIAL IV SCH (07:24)
[2023-08-26] MEDS: DEXTROSE 5%-NS 1,000 ML IV SCH (07:24)
[2023-08-26] MEDS: ENOXAPARIN 40 MG/0.4 ML SYRINGE SQ SCH (09:22)
[2023-08-26] MEDS: FLUCONAZOLE IV SCH (09:22)
[2023-08-27 06:17] LABS: Basophils # (Auto) 0.02 K/mcL (0.00-0.30); Basophils % (Auto) 0.8 % (0.0-2.0); Eosinophils # (Auto) 0.11 K/mcL (0.00-0.70); Eosinophils % (Auto) 4.2 % (0.0-7.0); Hematocrit 32.1 % (40.1-51.0); Hemoglobin 10.5 g/dL (13.7-17.5); Lymphocytes # (Auto) 0.56 K/mcL (1.50-4.80); Lymphocytes % (Auto) 21.1 % (15.5-49.0); Mean Cell Volume 90.2 fL (80.0-100.0); Mean Corpuscular HGB Conc 32.7 g/dL (31.0-36.0); Mean Platelet Volume 11.9 fL (8.8-12.5); Monocytes # (Auto) 0.29 K/mcL (0.10-0.90); Monocytes % (Auto) 10.9 % (1.0-12.0); Neutrophils % (Auto) 62.6 % (38.0-78.0); Platelet Count 87 K/mcL (140-440); RBC 3.56 M/mcL (4.63-6.08); Red Cell Distribution Width 13.4 % (11.5-14.5); WBC 2.7 K/mcL (4.5-11.0)
[2023-08-27 06:22] LABS: ALT/SGPT 21 U/L (<40); AST/SGOT 22 U/L (<40); Albumin 2.8 gm/dL (3.2-5.2); Albumin/Globulin Ratio 1.4 (1.0-2.3); Alkaline Phosphatase 91 U/L (39-117); Bilirubin,Direct < 0.2 mg/dL (0-0.3); Bilirubin,Total 0.3 mg/dL (0.1-1.0); Blood Urea Nitrogen 17 mg/dL (8-23); Calcium 8.6 mg/dL (8.6-10.4); Carbon Dioxide 21 mmol/L (22-30); Chloride 111 mmol/L (96-108); Glomerular Filtration Rate 86; Glucose 118 mg/dL (70-105); Lactate Dehydrogenase 153 U/L (135-225); Phosphorous 2.7 mg/dL (2.5-4.5); Potassium 3.2 mmol/L (3.3-5.1); Sodium 139 mmol/L (133-145); Triglycerides 124 mg/dL (<150); Uric Acid 3.7 mg/dL (2.5-8.0)
[2023-08-27] MEDS ORDERED: TPN PER PHARMACY IV SCH (09:00)
[2023-08-27] MEDS ORDERED: LIDOCAINE 1% 20 ML VIAL SQ ONE (09:33)
[2023-08-27] MEDS: ONDANSETRON 4 MG/2 ML VIAL IV PRN (10:48)
[2023-08-27] MEDS: [UNRECOGNIZED DRUG - REMARK] IV SCH (11:45)
[2023-08-27] MEDS: CASPOFUNGIN ACETATE 70 MG in 0.9 % SODIUM CHLORIDE 250 ML IV SCH (18:51)
[2023-08-27] MEDS: fentaNYL 100 MCG/2 ML VIAL IV PRN (20:55)
[2023-08-28 06:15] LABS: Basophils # (Auto) 0.02 K/mcL (0.00-0.30); Basophils % (Auto) 0.6 % (0.0-2.0); Eosinophils # (Auto) 0.07 K/mcL (0.00-0.70); Eosinophils % (Auto) 2.2 % (0.0-7.0); Hematocrit 30.6 % (40.1-51.0); Hemoglobin 9.9 g/dL (13.7-17.5); Lymphocytes # (Auto) 0.64 K/mcL (1.50-4.80); Lymphocytes % (Auto) 20.4 % (15.5-49.0); Mean Corpuscular HGB Conc 32.4 g/dL (31.0-36.0); Mean Platelet Volume 11.9 fL (8.8-12.5); Monocytes % (Auto) 9.6 % (1.0-12.0); Neutrophils % (Auto) 66.9 % (38.0-78.0); Platelet Count 124 K/mcL (140-440); Red Cell Distribution Width 13.3 % (11.5-14.5); WBC 3.1 K/mcL (4.5-11.0)
[2023-08-28 06:30] LABS: ALT/SGPT 23 U/L (<40); AST/SGOT 23 U/L (<40); Albumin 2.9 gm/dL (3.2-5.2); Albumin/Globulin Ratio 1.6 (1.0-2.3); Alkaline Phosphatase 87 U/L (39-117); Bilirubin,Direct < 0.2 mg/dL (0-0.3); Bilirubin,Total 0.2 mg/dL (0.1-1.0); Blood Urea Nitrogen 16 mg/dL (8-23); Calcium 8.2 mg/dL (8.6-10.4); Carbon Dioxide 21 mmol/L (22-30); Chloride 110 mmol/L (96-108); Globulin 1.8 gm/dL (2.2-3.7); Glomerular Filtration Rate 91; Glucose 141 mg/dL (70-105); Lactate Dehydrogenase 159 U/L (135-225); Phosphorous 2.4 mg/dL (2.5-4.5); Potassium 3.5 mmol/L (3.3-5.1); Sodium 137 mmol/L (133-145); Triglycerides 75 mg/dL (<150)
[2023-08-28] MEDS: CASPOFUNGIN ACETATE 50 MG in 0.9 % SODIUM CHLORIDE 250 ML IV SCH (08:07)
[2023-08-28] MEDS: [UNRECOGNIZED DRUG - REMARK] IV SCH (11:33)
[2023-08-28] MEDS: FAT EMULSION 20% 250 ML IV SCH (17:55)
[2023-08-29 09:28] LABS: ALT/SGPT 27 U/L (<40); AST/SGOT 22 U/L (<40); Albumin 2.7 gm/dL (3.2-5.2); Albumin/Globulin Ratio 1.6 (1.0-2.3); Alkaline Phosphatase 84 U/L (39-117); Bilirubin,Direct < 0.2 mg/dL (0-0.3); Bilirubin,Total < 0.2 mg/dL (0.1-1.0); Blood Urea Nitrogen 17 mg/dL (8-23); Calcium 7.9 mg/dL (8.6-10.4); Carbon Dioxide 20 mmol/L (22-30); Chloride 109 mmol/L (96-108); Globulin 1.7 gm/dL (2.2-3.7); Glomerular Filtration Rate 91; Glucose 157 mg/dL (70-105); Lactate Dehydrogenase 136 U/L (135-225); Phosphorous 2.8 mg/dL (2.5-4.5); Potassium 3.6 mmol/L (3.3-5.1); Sodium 135 mmol/L (133-145); Triglycerides 61 mg/dL (<150); Uric Acid 2.1 mg/dL (2.5-8.0)
[2023-08-29] MEDS: ERYTHROMYCIN LACTOBIONATE 250 MG in 0.9 % SODIUM CHLORIDE 100 ML IV SCH ×2 (09:30→19:12)
[2023-08-29] MEDS: INSULIN LISPRO 1 UNIT/0.01 ML UNIT SQ SCH (17:54)
[2023-08-30] MEDS: 0.9 % SODIUM CHLORIDE 1,000 ML IV SCH ×2 (15:04→17:17)
[2023-08-30 16:54] LABS: Basophils # (Auto) 0.03 K/mcL (0.00-0.30); Basophils % (Auto) 0.7 % (0.0-2.0); Eosinophils # (Auto) 0.34 K/mcL (0.00-0.70); Hemoglobin 10.6 g/dL (13.7-17.5); Lymphocytes % (Auto) 18.7 % (15.5-49.0); Mean Cell Volume 93.9 fL (80.0-100.0); Mean Corpuscular HGB Conc 31.2 g/dL (31.0-36.0); Mean Platelet Volume 11.7 fL (8.8-12.5); Monocytes # (Auto) 0.38 K/mcL (0.10-0.90); Monocytes % (Auto) 8.9 % (1.0-12.0); Platelet Count 180 K/mcL (140-440); RBC 3.62 M/mcL (4.63-6.08); Red Cell Distribution Width 13.7 % (11.5-14.5); WBC 4.3 K/mcL (4.5-11.0)
[2023-09-01 07:50] LABS: ALT/SGPT 23 U/L (<40); AST/SGOT 19 U/L (<40); Albumin 3.1 gm/dL (3.2-5.2); Albumin/Globulin Ratio 1.7 (1.0-2.3); Alkaline Phosphatase 93 U/L (39-117); Bilirubin,Direct < 0.2 mg/dL (0-0.3); Bilirubin,Total < 0.2 mg/dL (0.1-1.0); Blood Urea Nitrogen 19 mg/dL (8-23); Calcium 8.4 mg/dL (8.6-10.4); Carbon Dioxide 22 mmol/L (22-30); Chloride 106 mmol/L (96-108); Globulin 1.8 gm/dL (2.2-3.7); Glomerular Filtration Rate 91; Glucose 129 mg/dL (70-105); Lactate Dehydrogenase 153 U/L (135-225); Phosphorous 3.7 mg/dL (2.5-4.5); Potassium 4.4 mmol/L (3.3-5.1); Sodium 134 mmol/L (133-145); Triglycerides 101 mg/dL (<150); Uric Acid 1.5 mg/dL (2.5-8.0)
[2023-09-02 07:50] LABS: ALT/SGPT 24 U/L (<40); AST/SGOT 29 U/L (<40); Albumin 3.1 gm/dL (3.2-5.2); Albumin/Globulin Ratio 1.6 (1.0-2.3); Alkaline Phosphatase 92 U/L (39-117); Bilirubin,Direct < 0.2 mg/dL (0-0.3); Bilirubin,Total 0.2 mg/dL (0.1-1.0); Blood Urea Nitrogen 23 mg/dL (8-23); Calcium 8.6 mg/dL (8.6-10.4); Carbon Dioxide 21 mmol/L (22-30); Chloride 106 mmol/L (96-108); Globulin 1.9 gm/dL (2.2-3.7); Glomerular Filtration Rate 91; Glucose 137 mg/dL (70-105); Lactate Dehydrogenase 208 U/L (135-225); Phosphorous 4.2 mg/dL (2.5-4.5); Potassium 5.3 mmol/L (3.3-5.1); Sodium 134 mmol/L (133-145); Triglycerides 61 mg/dL (<150); Uric Acid 1.7 mg/dL (2.5-8.0)
[2023-09-02] MEDS: [UNRECOGNIZED DRUG - REMARK] IV SCH (11:59)
[2023-09-02 17:22] LABS: Appearance,Urine Clear (Clear); Bacteria,Urine 0 /hpf (0); Bilirubin,Urine Negative (Negative); Color,Urine Yellow; Culture Indicated,Urine No; Glucose,Urine (UA) Negative (Negative); Ketones,Urine Negative (Negative); Leukocyte Esterase,Urine Negative /uL (Negative); Mucus,Urine Few /hpf; Nitrate,Urine Negative (Negative); PH,Urine 5.5 (5.0-9.0); Protein,Urine Negative (Negative); Specific Gravity,Urine 1.015 (1.000-1.035); Urine Blood Trace-intact ery/mcL (Negative); Urine Hyaline Cast 2 /lph (0-2); Urine RBC 1 /hpf (0-3); Urine Squamous Epithelial Cell 0 /hpf (0-4); Urine WBC 1 /hpf (0-4); Urobilinogen,Urine Normal
[2023-09-02] MEDS ORDERED: RIVAROXABAN 15 MG TABLET PO SCH (17:30)
[2023-09-02] MEDS: fentaNYL 50 MCG PATCH TOPICAL SCH (17:46)
[2023-09-03 06:02] LABS: Basophils # (Auto) 0.03 K/mcL (0.00-0.30); Basophils % (Auto) 0.4 % (0.0-2.0); Eosinophils # (Auto) 0.29 K/mcL (0.00-0.70); Hematocrit 35.3 % (40.1-51.0); Hemoglobin 11.4 g/dL (13.7-17.5); Lymphocytes # (Auto) 1.17 K/mcL (1.50-4.80); Lymphocytes % (Auto) 15.9 % (15.5-49.0); Mean Cell Volume 90.3 fL (80.0-100.0); Mean Corpuscular HGB Conc 32.3 g/dL (31.0-36.0); Mean Platelet Volume 10.1 fL (8.8-12.5); Monocytes # (Auto) 0.63 K/mcL (0.10-0.90); Monocytes % (Auto) 8.6 % (1.0-12.0); Neutrophils % (Auto) 69.9 % (38.0-78.0); Platelet Count 210 K/mcL (140-440); RBC 3.91 M/mcL (4.63-6.08); Red Cell Distribution Width 14.3 % (11.5-14.5); WBC 7.3 K/mcL (4.5-11.0)
[2023-09-03 06:38] LABS: ALT/SGPT 23 U/L (<40); AST/SGOT 24 U/L (<40); Albumin 3.1 gm/dL (3.2-5.2); Albumin/Globulin Ratio 1.6 (1.0-2.3); Alkaline Phosphatase 90 U/L (39-117); Bilirubin,Direct < 0.2 mg/dL (0-0.3); Bilirubin,Total < 0.2 mg/dL (0.1-1.0); Blood Urea Nitrogen 25 mg/dL (8-23); Calcium 8.6 mg/dL (8.6-10.4); Carbon Dioxide 20 mmol/L (22-30); Chloride 105 mmol/L (96-108); Globulin 1.9 gm/dL (2.2-3.7); Glomerular Filtration Rate 91; Glucose 124 mg/dL (70-105); Lactate Dehydrogenase 158 U/L (135-225); Phosphorous 3.8 mg/dL (2.5-4.5); Potassium 4.4 mmol/L (3.3-5.1); Sodium 133 mmol/L (133-145); Triglycerides 93 mg/dL (<150); Uric Acid 1.9 mg/dL (2.5-8.0)
[2023-09-03] MEDS: [UNRECOGNIZED DRUG - REMARK] IV SCH (12:21)
[2023-09-04] MEDS ORDERED: ACETAMINOPHEN 1,000 MG/100 ML BAG IV PRN (13:42)
[2023-09-04] MEDS: [UNRECOGNIZED DRUG - REMARK] IV SCH (14:46)
[2023-09-05 10:16] LABS: ALT/SGPT 16 U/L (<40); AST/SGOT 19 U/L (<40); Albumin 3.3 gm/dL (3.2-5.2); Albumin/Globulin Ratio 1.7 (1.0-2.3); Alkaline Phosphatase 93 U/L (39-117); Bilirubin,Direct < 0.2 mg/dL (0-0.3); Bilirubin,Total < 0.2 mg/dL (0.1-1.0); Blood Urea Nitrogen 26 mg/dL (8-23); Calcium 8.9 mg/dL (8.6-10.4); Carbon Dioxide 23 mmol/L (22-30); Chloride 109 mmol/L (96-108); Globulin 1.9 gm/dL (2.2-3.7); Glomerular Filtration Rate 91; Glucose 130 mg/dL (70-105); Lactate Dehydrogenase 142 U/L (135-225); Phosphorous 3.4 mg/dL (2.5-4.5); Potassium 4.5 mmol/L (3.3-5.1); Sodium 138 mmol/L (133-145); Triglycerides 61 mg/dL (<150); Uric Acid 2.3 mg/dL (2.5-8.0)
[2023-09-06 07:16] LABS: ALT/SGPT 13 U/L (<40); AST/SGOT 18 U/L (<40); Albumin 3.3 gm/dL (3.2-5.2); Albumin/Globulin Ratio 1.8 (1.0-2.3); Alkaline Phosphatase 85 U/L (39-117); Bilirubin,Direct < 0.2 mg/dL (0-0.3); Bilirubin,Total 0.3 mg/dL (0.1-1.0); Blood Urea Nitrogen 27 mg/dL (8-23); Carbon Dioxide 23 mmol/L (22-30); Chloride 109 mmol/L (96-108); Globulin 1.8 gm/dL (2.2-3.7); Glomerular Filtration Rate 91; Glucose 118 mg/dL (70-105); Lactate Dehydrogenase 137 U/L (135-225); Phosphorous 3.5 mg/dL (2.5-4.5); Potassium 4.4 mmol/L (3.3-5.1); Sodium 138 mmol/L (133-145); Triglycerides 41 mg/dL (<150); Uric Acid 2.4 mg/dL (2.5-8.0)
[2023-09-07 07:03] LABS: ALT/SGPT 13 U/L (<40); AST/SGOT 20 U/L (<40); Albumin 3.1 gm/dL (3.2-5.2); Albumin/Globulin Ratio 1.5 (1.0-2.3); Alkaline Phosphatase 87 U/L (39-117); Bilirubin,Direct 0.2 mg/dL (<0.3); Bilirubin,Total 0.4 mg/dL (0.1-1.0); Blood Urea Nitrogen 27 mg/dL (8-23); Carbon Dioxide 25 mmol/L (22-30); Chloride 107 mmol/L (96-108); Globulin 2.1 gm/dL (2.2-3.7); Glomerular Filtration Rate 91; Glucose 134 mg/dL (70-105); Lactate Dehydrogenase 137 U/L (135-225); Phosphorous 3.4 mg/dL (2.5-4.5); Potassium 4.2 mmol/L (3.3-5.1); Sodium 138 mmol/L (133-145); Triglycerides 43 mg/dL (<150); Uric Acid 2.3 mg/dL (2.5-8.0)
[2023-09-07 08:47] VITALS: TEMP 98.4
[2023-09-07 13:23] VITALS: O2SAT 99
== END 2023-09-07 13:35 | disposition home or self-care (01) | DRG 871 ==
LOC: MEDSUR 15:15
PROVIDERS: ADMIT Family Medicine Adult Medicine; ATTEND Family Medicine Adult Medicine

== ENCOUNTER 2023-09-24 11:54 | Inpatient (IN) ==
[2023-09-24] MEDS: CEFEPIME 2 GM VIAL IV ONE (13:21)
[2023-09-24 13:31] LABS: Basophils # (Auto) 0.02 K/mcL (0.00-0.30); Basophils % (Auto) 0.3 % (0.0-2.0); Eosinophils # (Auto) 0.13 K/mcL (0.00-0.70); Eosinophils % (Auto) 1.9 % (0.0-7.0); Hematocrit 35.3 % (40.1-51.0); Hemoglobin 11.3 g/dL (13.7-17.5); Lymphocytes # (Auto) 0.29 K/mcL (1.50-4.80); Lymphocytes % (Auto) 4.1 % (15.5-49.0); Mean Cell Volume 89.1 fL (80.0-100.0); Mean Platelet Volume 11.3 fL (8.8-12.5); Monocytes # (Auto) 0.47 K/mcL (0.10-0.90); Monocytes % (Auto) 6.7 % (1.0-12.0); Neutrophils % (Auto) 86.9 % (38.0-78.0); Platelet Count 153 K/mcL (140-440); RBC 3.96 M/mcL (4.63-6.08); Red Cell Distribution Width 14.1 % (11.5-14.5)
[2023-09-24 14:09] LABS: ALT/SGPT 13 U/L (<40); AST/SGOT 25 U/L (<40); Albumin 3.3 gm/dL (3.2-5.2); Albumin/Globulin Ratio 1.3 (1.0-2.3); Alkaline Phosphatase 127 U/L (39-117); Bilirubin,Total 0.5 mg/dL (0.1-1.0); Blood Urea Nitrogen 25 mg/dL (8-23); Calcium 8.7 mg/dL (8.6-10.4); Carbon Dioxide 25 mmol/L (22-30); Chloride 101 mmol/L (96-108); Globulin 2.5 gm/dL (2.2-3.7); Glomerular Filtration Rate 86; Glucose 103 mg/dL (70-105); Potassium 4.4 mmol/L (3.3-5.1); Sodium 136 mmol/L (133-145)
[2023-09-24 16:14] LABS: Appearance,Urine Slightly Cloudy (Clear); Bilirubin,Urine Negative (Negative); Color,Urine Yellow; Culture Indicated,Urine No; Glucose,Urine (UA) Negative (Negative); Ketones,Urine Negative (Negative); Leukocyte Esterase,Urine Small /uL (Negative); Nitrate,Urine Negative (Negative); PH,Urine 5.5 (5.0-9.0); Protein,Urine 30 mg/dL (Negative); Urine Blood Large ery/mcL (Negative); Urine RBC > 182 /hpf (0-1); Urine Squamous Epithelial Cell 3 /hpf (0-4); Urine WBC 7 /hpf (0-4); Urobilinogen,Urine Normal
[2023-09-24] MEDS ORDERED: IPRATROPIUM/ALBUTEROL 3 ML AMPUL.NEB NEB PRN (17:02)
[2023-09-24] MEDS ORDERED: ONDANSETRON 4 MG/2 ML VIAL IV PRN (17:02)
[2023-09-24] MEDS ORDERED: PROMETHAZINE 25 MG/ML VIAL IV PRN (17:02)
[2023-09-24] MEDS: DEXTROSE 5%-LR 1,000 ML IV SCH (18:31)
[2023-09-24] MEDS: PIPERACILLIN SODIUM/TAZOBACTAM 3.375 GM in DEXTROSE 5% IN WATER 50 ML IV SCH (19:53)
[2023-09-24] MEDS: PIPERACILLIN SODIUM/TAZOBACTAM 3.375 GM in DEXTROSE 5% IN WATER 100 ML IV SCH (20:05)
[2023-09-24] MEDS: DEXTROSE 5%-NS 1,000 ML IV SCH (20:24)
[2023-09-24] MEDS: 0.9 % SODIUM CHLORIDE 10 ML SYRINGE IV SCH (20:59)
[2023-09-24] MEDS: SENNOSIDES 1 TABLET PO SCH (20:59)
[2023-09-24] MEDS: DOCUSATE SODIUM 100 MG CAPSULE PO SCH (20:59)
[2023-09-25 07:07] LABS: Basophils # (Auto) 0.04 K/mcL (0.00-0.30); Eosinophils # (Auto) 0.14 K/mcL (0.00-0.70); Eosinophils % (Auto) 3.4 % (0.0-7.0); Hematocrit 34.9 % (40.1-51.0); Hemoglobin 10.7 g/dL (13.7-17.5); Lymphocytes # (Auto) 0.57 K/mcL (1.50-4.80); Lymphocytes % (Auto) 13.8 % (15.5-49.0); Mean Cell Volume 93.3 fL (80.0-100.0); Mean Corpuscular HGB Conc 30.7 g/dL (31.0-36.0); Mean Platelet Volume 11.2 fL (8.8-12.5); Monocytes # (Auto) 0.43 K/mcL (0.10-0.90); Monocytes % (Auto) 10.4 % (1.0-12.0); Neutrophils % (Auto) 71.2 % (38.0-78.0); Platelet Count 108 K/mcL (140-440); RBC 3.74 M/mcL (4.63-6.08); Red Cell Distribution Width 13.9 % (11.5-14.5); WBC 4.1 K/mcL (4.5-11.0)
[2023-09-25 07:49] LABS: ALT/SGPT 13 U/L (<40); AST/SGOT 21 U/L (<40); Albumin/Globulin Ratio 1.3 (1.0-2.3); Alkaline Phosphatase 115 U/L (39-117); Bilirubin,Total 0.5 mg/dL (0.1-1.0); Blood Urea Nitrogen 18 mg/dL (8-23); Calcium 8.2 mg/dL (8.6-10.4); Carbon Dioxide 22 mmol/L (22-30); Chloride 103 mmol/L (96-108); Globulin 2.3 gm/dL (2.2-3.7); Glomerular Filtration Rate 86; Glucose 110 mg/dL (70-105); Potassium 3.6 mmol/L (3.3-5.1); Sodium 135 mmol/L (133-145)
[2023-09-25] MEDS: ENOXAPARIN 40 MG/0.4 ML SYRINGE SQ SCH (10:34)
[2023-09-26] MEDS: traZODone HCL 50 MG TABLET ONE (00:36)
[2023-09-26] MEDS: traZODone HCL 50 MG TABLET PO PRN (00:41)
[2023-09-26] MEDS: CEFEPIME 1 GM VIAL ONE (00:52)
[2023-09-26] MEDS: CEFEPIME 2 GM VIAL IV SCH (00:52)
[2023-09-26 07:13] LABS: Basophils # (Auto) 0.05 K/mcL (0.00-0.30); Basophils % (Auto) 1.1 % (0.0-2.0); Eosinophils % (Auto) 2.1 % (0.0-7.0); Hematocrit 31.9 % (40.1-51.0); Hemoglobin 10.2 g/dL (13.7-17.5); Lymphocytes # (Auto) 0.74 K/mcL (1.50-4.80); Lymphocytes % (Auto) 15.7 % (15.5-49.0); Mean Cell Volume 88.9 fL (80.0-100.0); Mean Platelet Volume 11.3 fL (8.8-12.5); Monocytes # (Auto) 0.41 K/mcL (0.10-0.90); Monocytes % (Auto) 8.7 % (1.0-12.0); Neutrophils % (Auto) 72.2 % (38.0-78.0); Platelet Count 182 K/mcL (140-440); RBC 3.59 M/mcL (4.63-6.08); Red Cell Distribution Width 13.7 % (11.5-14.5); WBC 4.7 K/mcL (4.5-11.0)
[2023-09-26 07:46] LABS: ALT/SGPT 12 U/L (<40); AST/SGOT 21 U/L (<40); Albumin 2.9 gm/dL (3.2-5.2); Albumin/Globulin Ratio 1.5 (1.0-2.3); Alkaline Phosphatase 103 U/L (39-117); Bilirubin,Total 0.5 mg/dL (0.1-1.0); Blood Urea Nitrogen 13 mg/dL (8-23); Carbon Dioxide 23 mmol/L (22-30); Chloride 104 mmol/L (96-108); Glomerular Filtration Rate 86; Glucose 114 mg/dL (70-105); Potassium 3.2 mmol/L (3.3-5.1); Sodium 135 mmol/L (133-145)
[2023-09-26] MEDS ORDERED: oxyCODONE IR 5 MG TABLET PO PRN (10:50)
[2023-09-26] MEDS ORDERED: morphine 2 MG/ML VIAL IV PRN (10:53)
[2023-09-26] MEDS: oxyCODONE IR 5 MG TABLET PO PRN (11:28)
[2023-09-26] MEDS: DEXTROSE 5%-1/2NS W/10MEQ KCL 1,000 ML IV SCH (14:41)
[2023-09-27] MEDS: LORazepam 0.5 MG TABLET ONE (00:05)
[2023-09-27] MEDS: LORazepam 0.5 MG TABLET PO PRN (00:05)
[2023-09-27] MEDS: ACETAMINOPHEN 325 MG TABLET PO PRN (02:48)
[2023-09-27 07:31] LABS: ALT/SGPT 19 U/L (<40); AST/SGOT 29 U/L (<40); Albumin 3.3 gm/dL (3.2-5.2); Albumin/Globulin Ratio 1.4 (1.0-2.3); Alkaline Phosphatase 113 U/L (39-117); Bilirubin,Direct 0.2 mg/dL (<0.3); Bilirubin,Total 0.5 mg/dL (0.1-1.0); Blood Urea Nitrogen 11 mg/dL (8-23); Calcium 8.5 mg/dL (8.6-10.4); Carbon Dioxide 20 mmol/L (22-30); Chloride 104 mmol/L (96-108); Globulin 2.3 gm/dL (2.2-3.7); Glomerular Filtration Rate 86; Glucose 105 mg/dL (70-105); Lactate Dehydrogenase 203 U/L (135-225); Phosphorous 2.3 mg/dL (2.5-4.5); Potassium 3.6 mmol/L (3.3-5.1); Sodium 136 mmol/L (133-145); Triglycerides 86 mg/dL (<150); Uric Acid 2.5 mg/dL (2.5-8.0)
[2023-09-27] MEDS ORDERED: VANCOMYCIN PER PHARMACY IV SCH (14:43)
[2023-09-27] MEDS: VANCOMYCIN 1,000 MG in 0.9 % SODIUM CHLORIDE 250 ML IV SCH (15:59)
[2023-09-27] MEDS ORDERED: ENSURE PO SCH (21:00)
[2023-09-28 06:50] LABS: ALT/SGPT 21 U/L (<40); AST/SGOT 31 U/L (<40); Albumin 3.4 gm/dL (3.2-5.2); Albumin/Globulin Ratio 1.5 (1.0-2.3); Alkaline Phosphatase 113 U/L (39-117); Bilirubin,Direct 0.2 mg/dL (<0.3); Bilirubin,Total 0.6 mg/dL (0.1-1.0); Blood Urea Nitrogen 11 mg/dL (8-23); Calcium 8.5 mg/dL (8.6-10.4); Carbon Dioxide 21 mmol/L (22-30); Chloride 103 mmol/L (96-108); Globulin 2.3 gm/dL (2.2-3.7); Glomerular Filtration Rate 86; Glucose 104 mg/dL (70-105); Lactate Dehydrogenase 213 U/L (135-225); Phosphorous 2.1 mg/dL (2.5-4.5); Potassium 3.6 mmol/L (3.3-5.1); Sodium 135 mmol/L (133-145); Triglycerides 75 mg/dL (<150); Uric Acid 2.4 mg/dL (2.5-8.0)
[2023-09-28] MEDS ORDERED: VANCOMYCIN PER PHARMACY IV SCH (07:39)
[2023-09-28] MEDS: PHOSPHORUS 250 MG TABLET PO SCH (08:47)
[2023-09-28] MEDS: NEUTRA PHOS 1 PACKET PO SCH (08:48)
[2023-09-28] MEDS: VANCOMYCIN 1,000 MG in 0.9 % SODIUM CHLORIDE 250 ML IV SCH (09:24)
[2023-09-28] MEDS ORDERED: TPN PER PHARMACY IV SCH (12:27)
[2023-09-28] MEDS: APIXABAN 5 MG TABLET PO SCH (13:05)
[2023-09-28] MEDS ORDERED: DEXTROSE 50% 50 ML VIAL IV PRN (15:04)
[2023-09-28] MEDS ORDERED: DEXTROSE 31 GM ORAL.SUSP PO PRN (15:04)
[2023-09-28] MEDS: DEXTROSE 5%-1/2NS 1,000 ML IV SCH (15:33)
[2023-09-28] MEDS: CALCIUM GLUCONATE IV SCH (15:34)
[2023-09-28] MEDS: SODIUM CHLORIDE IV SCH (15:34)
[2023-09-28] MEDS: MAGNESIUM SULFATE IV SCH (15:34)
[2023-09-28] MEDS: [UNRECOGNIZED DRUG - OTHER] IV SCH (15:34)
[2023-09-28] MEDS: INSULIN LISPRO 1 UNIT/0.01 ML UNIT SQ SCH (17:21)
[2023-09-28] MEDS: FAT EMULSION 20% 250 ML IV SCH (18:08)
[2023-09-28] MEDS: 0.9 % SODIUM CHLORIDE 10 ML SYRINGE IV SCH (20:22)
[2023-09-29] MEDS: LEVOFLOXACIN 750 MG TABLET PO SCH (08:55)
[2023-09-29 09:27] LABS: ALT/SGPT 21 U/L (<40); AST/SGOT 23 U/L (<40); Albumin 3.3 gm/dL (3.2-5.2); Albumin/Globulin Ratio 1.6 (1.0-2.3); Alkaline Phosphatase 101 U/L (39-117); Bilirubin,Direct < 0.2 mg/dL (0-0.3); Bilirubin,Total 0.4 mg/dL (0.1-1.0); Blood Urea Nitrogen 12 mg/dL (8-23); Calcium 8.5 mg/dL (8.6-10.4); Carbon Dioxide 23 mmol/L (22-30); Chloride 103 mmol/L (96-108); Globulin 2.1 gm/dL (2.2-3.7); Glomerular Filtration Rate 86; Glucose 119 mg/dL (70-105); Lactate Dehydrogenase 168 U/L (135-225); Phosphorous 2.6 mg/dL (2.5-4.5); Potassium 3.5 mmol/L (3.3-5.1); Sodium 136 mmol/L (133-145); Triglycerides 53 mg/dL (<150); Uric Acid 2.2 mg/dL (2.5-8.0)
[2023-09-29] MEDS: CALCIUM GLUCONATE 5 MEQ, MAGNESIUM SULFATE 8.12 MEQ, SODIUM CHLORIDE 40 MEQ, POTASSIUM ... IV SCH (14:50)
[2023-09-30 08:11] LABS: ALT/SGPT 26 U/L (<40); AST/SGOT 27 U/L (<40); Albumin 3.5 gm/dL (3.2-5.2); Albumin/Globulin Ratio 1.6 (1.0-2.3); Alkaline Phosphatase 111 U/L (39-117); Bilirubin,Direct 0.2 mg/dL (<0.3); Bilirubin,Total 0.5 mg/dL (0.1-1.0); Blood Urea Nitrogen 19 mg/dL (8-23); Calcium 8.7 mg/dL (8.6-10.4); Carbon Dioxide 22 mmol/L (22-30); Chloride 101 mmol/L (96-108); Globulin 2.2 gm/dL (2.2-3.7); Glomerular Filtration Rate 91; Glucose 133 mg/dL (70-105); Lactate Dehydrogenase 182 U/L (135-225); Phosphorous 2.3 mg/dL (2.5-4.5); Potassium 3.6 mmol/L (3.3-5.1); Sodium 133 mmol/L (133-145); Triglycerides 49 mg/dL (<150); Uric Acid 1.7 mg/dL (2.5-8.0)
[2023-09-30] MEDS: INSULIN LISPRO 1 UNIT/0.01 ML UNIT SQ SCH (12:34)
[2023-09-30] MEDS: SODIUM CHLORIDE IV SCH (15:29)
[2023-09-30] MEDS: MAGNESIUM SULFATE IV SCH (15:29)
[2023-09-30] MEDS: CALCIUM GLUCONATE IV SCH (15:29)
[2023-09-30] MEDS: [UNRECOGNIZED DRUG - OTHER] IV SCH (15:29)
[2023-10-01 05:19] LABS: ALT/SGPT 39 U/L (<40); AST/SGOT 39 U/L (<40); Albumin 3.3 gm/dL (3.2-5.2); Albumin/Globulin Ratio 1.5 (1.0-2.3); Alkaline Phosphatase 115 U/L (39-117); Bilirubin,Direct < 0.2 mg/dL (0-0.3); Bilirubin,Total 0.3 mg/dL (0.1-1.0); Blood Urea Nitrogen 22 mg/dL (8-23); Calcium 8.7 mg/dL (8.6-10.4); Carbon Dioxide 19 mmol/L (22-30); Chloride 104 mmol/L (96-108); Globulin 2.2 gm/dL (2.2-3.7); Glomerular Filtration Rate 91; Glucose 139 mg/dL (70-105); Lactate Dehydrogenase 171 U/L (135-225); Phosphorous 2.7 mg/dL (2.5-4.5); Potassium 3.7 mmol/L (3.3-5.1); Sodium 134 mmol/L (133-145); Triglycerides 113 mg/dL (<150); Uric Acid 1.6 mg/dL (2.5-8.0)
[2023-10-01] MEDS ORDERED: fentaNYL 50 MCG PATCH TOPICAL SCH (12:15)
[2023-10-01] MEDS: 0.9 % SODIUM CHLORIDE 10 ML SYRINGE IV PRN (15:39)
[2023-10-01 17:35] VITALS: TEMP 98.1; O2SAT 99
== END 2023-10-01 15:40 | disposition home or self-care (01) | DRG 872 ==
LOC: ED 11:54 → MEDSUR 16:58
PROVIDERS: ADMIT Internal Medicine; ATTEND Internal Medicine